=== PATIENT | female | born 1955 | race Caucasian/White ===

== ENCOUNTER 2018-02-14 12:11 | Inpatient (IN) | payer OTHER ==
--- OUTSIDE RECORDS SUMMARY | 2018-02-14 12:14 | XMS REPORT ---
:1955 [facility] Address [address] [place] [address] Dr. Dumont [address] [place] [address] Care Team Providers Name Role Phone ANGELITO ROCK Unavailable Unavailable Problems This patient has no known problems. Allergies, Adverse Reactions, Alerts This patient has no known allergies or adverse reactions. Medications This patient has no known medications. Results Test Description Test Time Test Comments Text Results Atomic Results Result Comments FINE NEEDLE ASPIRATE 2018-02-03 09:41:00 Medical Cytology Report BY EBUS Case: [id number] Authorizing Provider: Natanael Rock MD Collected: 01/11/2018 [id number] Ordering Location: [facility] Received: 01/12/2018 1001 PERIOPERATIVE SERVICES Pathologist: Adrianna Shaw Specimen: Lymph Node, Subcarinal, Station 7 Addendum is issued to report results of PD-L1 Testing from [facility]. The diagnosis remains the same.PD-L1 - No expression, 0% proportion score, Intensity- 0Addendum electronically signed by Adrianna Shaw on 02/03/2018 at 9:41 AMSTATION 7 LYMPH NODE, FNA BY CLINICIAN (DIRECT SMEARS AND CELL BLOCK OF ASPIRATE): - NON SMALL CELL CARCINOMA, SQUAMOUS CELL CARCINOMA Signing Pathologist Direct Phone Line: [phone] signed by Adrianna Shaw on 01/13/2018 at 2:48 PMSmears are cellular showing many groups, sheets, and singly disbursed atypical cells with features of squamous differentiation . Many atypical cells with deep orangeophilic cytoplasm are seen. There is increased nuclear to cytoplasmic ratio with nuclear pleomorhism, mitoses, and nucleoli. Findings are positive for metastatic squamous cell carcinoma.Intradepartmental Consultation: Dr. Arnaldo Richardson has reviewed the case and agrees with the findings.Please also see cytopathology report [id number], 456 and 457. 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 IMPRESSION: Support Lines: None. Lungs and pleura: Cystic lesion in the right upper lobe is unchanged. No focal airspace disease. No significant effusion. No pneumothorax.Heart and mediastinum: Stable contours. Stable positioning of brachiocephalic stent material.Additional findings: None. Signed: JR Choi Robert MDReport Verified Date/Time: 01/14/2018 07:59:41 Reading Location: [address] Reading Room NEEDLE ASPIRATE 2018-01-13 14:50:00 Medical Cytology Report BY EBUS Case: [id number] Authorizing Provider: Natanael Rock MD Collected: 01/11/2018 [id number] Ordering Location: [facility] Received: 01/12/2018 1003 PERIOPERATIVE SERVICES Pathologist: Adrianna Shaw Specimen: Lymph Node, Lower Paratracheal, Right, Station 4R 4R LYMPH NODE, FNA BY CLINICIAN (DIRECT SMEARS AND CELL BLOCK OF ASPIRATE): - NON-SMALL CELL CARCINOMA, SQUAMOUS CELL CARCINOMA Signing Pathologist Direct Phone Line: [phone] signed by Adrianna Shaw on 01/13/2018 at 2:50 PMSmears are cellular showing many groups, sheets, and singly disbursed atypical cells with features of squamous differentiation . Many atypical cells with deep orangeophilic cytoplasm are seen. There is increased nuclear to cytoplasmic ratio with nuclear pleomorhism, mitoses, and nucleoli. Cell block shows rare atypical groups. Findings are positive for metastatic squamous cell carcinoma.Intradepartmental Consultation: Dr. Arnaldo Richardson has reviewed the case and agrees with the findings.Please also see cytopathology report [id number], 456 and 457. 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, received at [id number] LYMPH NODE FNA 4 direct smear slidesPrepared cell block(A2) from sample in 30 ml cytorich red fixativeCollected: [id number]: [id number] (5:54PM, [place])[facility], Department of Pathology, [address] [place] [address], [facility], [facility] of [facility], [address] [place] [address], CYTOLOGY 2018-01-13 14:45:00 Medical Cytology Report Case: [id number] Authorizing Provider: Natanael Rock MD Collected: 01/11/2018 1718 Ordering Location: [facility] Received: 01/12/2018 1006 PERIOPERATIVE SERVICES Pathologist: Adrianna Shaw Specimen: Lung, Right Lower Lobe RIGHT LOWER LOBE LUNG, BRONCHIAL WASHINGS (CYTOSPINS): - RARE MILDLY ATYPICAL SQUAMOUS CELLS PRESENT Signing Pathologist Direct Phone Line: [phone] signed by Adrianna Shaw on 01/13/2018 at 2:45 PMRare mildly atypical squamous cells are seen with orangeophilic cytoplasm. 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 Please correlate with concurrent cytology cases.Please also see cytopathology report [id number], 455 and 456. 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, received at [facility] LOWER LOBE LUNG BRONCHIAL WASHINGPrepared 4 cytospins from 15 ml colorless fluidCollected: [id number]: [id number], Department of Pathology, [address] [place] [address], [facility], [address] [place] [address], CYTOLOGY 2018-01-13 12:23:00 Medical Cytology Report Case: [id number] Authorizing Provider: Natanael Rock MD Collected: 01/11/2018 1712 Ordering Location: [facility] Received: 01/12/2018 1005 PERIOPERATIVE SERVICES Pathologist: Adrianna Shaw Specimen: Lung, Right Lower Lobe RIGHT LOWER LOBE LUNG, BRONCHIAL BRUSHING (CYTOSPINS): - NO MALIGNANT CELLS IDENTIFIED Signing Pathologist Direct Phone Line: [phone] signed by Adrianna Shaw on 01/13/2018 at 12:23 PMPlease also see cytopathology report [id number], [id number] and 457. 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, received at [facility] LOWER LOBE LUNG BRUSHING 2 cytospins prepared from unfixed brush tipCollected: [id number]: [id number]ower [facility] Center, Department of Pathology, [address] [place] [address], [facility]xhk[facility], [facility] of [facility]ology, [address] [place] [address], POCT-GLUCOSE METER 2018-01-11 13:54:00 Test Item Value Reference Range Comments POC-GLUCOSE METER (HIEU) (test 116 mg/dL 70-110 TESTED AT [address] htff=9960) [facility] [address] RAD, CHEST, PA OR AP, 1 [id number] 17:09:00Reason for exam:->pre- opShould this be performed at the bedside?->NoFINAL REPORT Frontal view of the chest. HISTORY: Preoperative. COMPARISON STUDY: None available. FINDINGS: The cardiac silhouette is unremarkable. A 1.9 x 2.0 cm cavitary mass isseen in the right upper lung field. The remaining pulmonary parenchyma is clear. No pleural effusionor pneumothorax is seen. A stent projects over the upper mediastinum. Degenerative changes are seen.IMPRESSION: Cavitary lesion in the right upper lung field for which further assessment with CT scan is recommended to assess for neoplasm. Signed: Matthew Patterson MDReport Verified Date/Time: 01/08/2018 17:09:28 Reading Location: [address] Consult Reading Room COMPREHENSIVE METABOLIC [id number] 16:51:00 Test Item Value Reference Range Comments TOTAL PROTEIN (BEAKER) 7.4 gm/dL 6.0-8.3 (test rvpy=263) ALBUMIN (BEAKER) (test 4.0 g/dL 3.5-5.0 keht=3132) ALKALINE PHOSPHATASE 65 U/L 40-150 (BEAKER) (test wdfu=764) BILIRUBIN TOTAL (BEAKER) 0.6 mg/dL 0.2-1.2 (test rjci=442) SODIUM (BEAKER) (test 133 meq/L 136-145 vkyh=343) POTASSIUM (BEAKER) (test 4.6 meq/L 3.5-5.1 qqwi=596) CHLORIDE (BEAKER) (test 98 meq/L 98-107 rbss=615) CO2 (BEAKER) (test 27 meq/L 22-29 rnbg=269) BLOOD UREA NITROGEN 6 mg/dL 7-21 (BEAKER) (test ycdp=641) CREATININE (BEAKER) (test 0.69 mg/dL 0.57-1.25 itkj=331) GLUCOSE RANDOM (BEAKER) 120 mg/dL 70-105 (test axbf=687) CALCIUM (BEAKER) (test 9.5 mg/dL 8.4-10.2 xmup=044) AST (SGOT) (BEAKER) (test 18 U/L 5-34 rosw=569) ALT (SGPT) (BEAKER) (test 21 U/L 6-55 alnv=739) EGFR (BEAKER) (test 86 mL/min/1.73 sq m ESTIMATED GFR IS NOT mark=0060) ACCURATE CREATININE CLEARANCE IN PREDICTING GLOMERULAR FILTRATION RATE. ESTIMATED GFR IS NOT APPLICABLE FOR DIALYSIS PATIENTS. PT/[id number] 16:49:00 Test Item Value Reference Range Comments PROTIME (BEAKER) (test hsar=678) 15.1 seconds 11.7-14.7 INR (BEAKER) (test esvm=225) 1.2 <=5.9 PARTIAL THROMBOPLASTIN TIME (BEAKER) (test 27.1 seconds 22.5-36.0 xpsd=296) RECOMMENDED COUMADIN/WARFARIN INR THERAPY RANGESSTANDARD DOSE: 2.0 - 3.0 Includes: PROPHYLAXIS forvenous thrombosis, systemic embolization; TREATMENT for venous thrombosis and/or pulmonary embolus.HIGH RISK: Target INR is 2.5-3.5 for patients with mechanical heart valves.CBC W/PLT COUNT & AUTO [id number] 16:35:00 Test Item Value Reference Range Comments WHITE BLOOD CELL COUNT (BEAKER) (test freq=347) 8.4 K/ L 3.5-10.5 RED BLOOD CELL COUNT (BEAKER) (test wndc=490) 4.19 M/ L 3.93-5.22 HEMOGLOBIN (BEAKER) (test ydqc=416) 13.0 GM/DL 11.2-15.7 HEMATOCRIT (BEAKER) (test dclb=256) 38.7 % 34.1-44.9 MEAN CORPUSCULAR VOLUME (BEAKER) (test brhl=871) 92.4 fL 79.4-94.8 MEAN CORPUSCULAR HEMOGLOBIN (BEAKER) (test 31.0 pg 25.6-32.2 awbv=992) MEAN CORPUSCULAR HEMOGLOBIN CONC (BEAKER) (test 33.6 GM/DL 32.2-35.5 acjb=299) RED CELL DISTRIBUTION WIDTH (BEAKER) (test 13.2 % 11.7-14.4 tabo=281) PLATELET COUNT (BEAKER) (test wxok=967) 246 K/CU MM 150-450 MEAN PLATELET VOLUME (BEAKER) (test kpmt=388) 9.3 fL 9.4-12.3 NUCLEATED RED BLOOD CELLS (BEAKER) (test 0 /100 WBC 0-0 tobw=474) NEUTROPHILS RELATIVE PERCENT (BEAKER) (test 64 % joey=573) LYMPHOCYTES RELATIVE PERCENT (BEAKER) (test 28 % xusg=073) MONOCYTES RELATIVE PERCENT (BEAKER) (test 6 % yowa=633) EOSINOPHILS RELATIVE PERCENT (BEAKER) (test 1 % qigm=242) BASOPHILS RELATIVE PERCENT (BEAKER) (test 1 % dwtl=646) NEUTROPHILS ABSOLUTE COUNT (BEAKER) (test 5.31 K/ L 1.56-6.13 xvor=176) LYMPHOCYTES ABSOLUTE COUNT (BEAKER) (test 2.34 K/ L 1.18-3.74 xrjl=937) MONOCYTES ABSOLUTE COUNT (BEAKER) (test 0.53 K/ L 0.24-0.36 dwet=721) EOSINOPHILS ABSOLUTE COUNT (BEAKER) (test 0.11 K/ L 0.04-0.36 laax=805) BASOPHILS ABSOLUTE COUNT (BEAKER) (test 0.04 K/ L 0.01-0.08 dmrw=498) IMMATURE GRANULOCYTES-RELATIVE PERCENT (BEAKER) 0 % 0-1 (test yzkx=2711)
[2018-02-14 13:14] LABS: Absolute Lymphocytes (CBC) 1.3 K/uL (0.7-4.9); Absolute Monocytes 0.5 K/uL (0.1-1.3); Absolute Neutrophil 7.4 K/uL (1.8-8.0); Basophils % 0.7 % (0-1.3); Eosinophils % 0.9 % (0-4.4); Hematocrit 36.9 % (36.0-45.0); Lymphocytes % 13.8 % (15.3-44.8); MCH 30.5 pg (27.0-35.0); MCV 90.9 fL (80-100); MPV 7.7 fL (7.6-11.3); Monocytes % 5.1 % (3.3-12.3); RBC Red Blood Cell Count 4.06 M/uL (3.86-4.86)
[2018-02-14 13:21] LABS: Protime INR 1.68
--- NOTE | 2018-02-14 13:22 | RAD REPORT ---
EXAM DESCRIPTION: RAD - Chest Single View - 02/14/2018 1:13 pm CLINICAL HISTORY: Chest pain. COMPARISON: 10/01/2017, 09/13/2015 FINDINGS: Portable technique limits examination quality. Cavitary lung lesion is again noted in the right upper lobe, appearing somewhat enlarged compared to the prior study. The heart is mildly prominent. Stent is present in superior mediastinum. No displace d fractures.
[2018-02-14] MEDS ORDERED: MORPHINE 4 MG/ML SYR ONE ×2 (13:24→16:32)
[2018-02-14 13:36] LABS: CKMB Creatine Kinase MB 0.9 ng/ml (0.3-4.0); Magnesium 1.1 mg/dL (1.8-2.5)
--- NOTE | 2018-02-14 13:46 | ER ---
Nurse's Notes [facility] Name: Cherise Ordaz Age: 62 yrs Sex: Female : 1955 Arrival Date: 02/14/2018 Time: 12:13 Bed 15 Private MD: Nisreen Gutiérrez Diagnosis: Chest pain, unspecified;Hypomagnesemia Presentation: 02/14 12:24 Presenting complaint: Patient states: i had chest pain that started an hour ago, heavy, hj pressure pain, moves to the back, denies nausea; reports SOB; denies fever; reports night sweats; states, i was just dx with lung cancer and im concerned about what tx to take and im stressed out about it;. Transition of care: patient was not received from another setting of care. Onset of symptoms was February 14, 2018. Care prior to arrival: None. 12:24 Method Of Arrival: Ambulatory 12:24 Acuity: JOSE 3 hj Triage Assessment: 12:29 General: Appears in no apparent distress. uncomfortable, Behavior is calm, cooperative, hj appropriate for age. Pain: Complains of pain in chest Pain radiates to back. Cardiovascular: Capillary refill < 3 seconds Patient's skin is warm and dry. Historical: - Allergies: 12:29 No Known Allergies; hj - Home Meds: 12:29 metformin 500 mg Oral Tb24 1 tab 2 times per day [Active]; omeprazole 20 mg Oral cpDR 1 hj cap once daily [Active]; metoprolol tartrate 25 mg Oral tab 1 tab once daily [Active]; simvastatin 40 mg Oral tab 1 tab once daily [Active]; Warfarin Oral [Active]; sertraline 100 mg oral tab 1 tab once daily [Active]; trazodone 100 mg Oral tab 1 tab as needed [Active]; alprazolam 0.5 mg Oral Tb24 1 tab once daily [Active]; bevespi [Active]; Albuterol Inhl [Active]; - PMHx: 12:29 Diabetes - NIDDM; Hyperlipidemia; hj - PSHx: 12:29 partial colectomy; back sx; hj - Immunization history:: Adult Immunizations unknown. - Social history:: Smoking status: Patient/guardian denies using tobacco. Screenin:00 Abuse screen: Denies threats or abuse. Denies injuries from another. Nutritional jl7 screening: No deficits noted. Tuberculosis screening: No symptoms or risk factors identified. Fall Risk IV access (20 points). Total Flores Fall Scale indicates No Risk (0-24 pts). Assessment: 12:29 Pain: Pain began 1 hour ago. hj 13:00 General: Appears distressed, uncomfortable, Behavior is calm, cooperative, appropriate jl7 for age. Pain: Complains of pain in chest Pain radiates to back Pain currently is 7 out of 10 on a pain scale. Quality of pain is described as squeezing, Pain began 2 hours ago. Is intermittent. Neuro: Level of Consciousness is awake, alert, obeys commands, Oriented to person, place, time, situation, Moves all extremities. Cardiovascular: Heart tones S1 S2 present Patient's skin is warm and dry. Respiratory: Airway is patent Respiratory effort is even, labored, Respiratory pattern is symmetrical, tachypnea Breath sounds with wheezes bilaterally. Derm: Skin is pink, warm \T\ dry. Musculoskeletal: No signs and/or symptoms reported regarding the musculoskeletal system. 13:05 Reassessment: NO BPs or IVs to left arm. jl7 14:00 Reassessment: No changes from previously documented assessment. Patient and/or family jl7 updated on plan of care and expected duration. Pain level reassessed. Patient is alert, oriented x 3, equal unlabored respirations, skin warm/dry/pink. 15:00 Reassessment: Patient and/or family updated on plan of care and expected duration. Pain jl7 level reassessed. Patient is alert, oriented x 3, equal unlabored respirations, skin warm/dry/pink. Right AC IV infiltrated, IV removed. Provider notified, ordered new IV in right hand. 16:15 Reassessment: Patient and/or family updated on plan of care and expected duration. Pain jl7 level reassessed. Patient is alert, oriented x 3, equal unlabored respirations, skin warm/dry/pink. Pt c/o of pain and nausea. Provider notified, see MAR for orders. Vital Signs: 12:23 BP 151 / 80; Pulse 98; Resp 18; Temp 98.7(TE); Pulse Ox 96% on R/A; Weight 83.01 kg; hj Height 5 ft. 5 in. (165.10 cm); Pain 8/10; 14:00 BP 125 / 75; Pulse 61; Resp 26 S; Pulse Ox 100% on R/A; jl7 15:00 BP 146 / 76; Pulse 100; Resp 24; Pulse Ox 100% on 2 lpm NC; jl7 12:23 Body Mass Index 30.45 (83.01 kg, 165.10 cm) ED Course: 12:13 Patient arrived in ED. rg4 12:15 Nisreen Gutiérrez MD is Private Physician. rg4 12:26 Triage completed. hj 12:29 Arm band placed on right wrist. hj 12:29 Patient maintains SpO2 saturation greater than 95% on room air. hj 12:33 Annelise Leonardo FNP-C is PHCP. snw 12:33 Mo Reyes MD is Attending Physician. snw 12:47 Placed in gown. Bed in low position. Call light in reach. Warm blanket given. Cardiac mh5 monitor on. Pulse ox on. NIBP on. 12:47 EKG done, by ED staff, reviewed by Annelise POMPA. 5 13:03 Juanita Barillas RN is Primary Nurse. jl7 13:16 X-ray completed. Portable x-ray completed in exam room. Patient tolerated procedure la2 well. 13:24 Initial lab(s) drawn, by me, sent to lab. Inserted saline lock: 22 gauge in right mh5 antecubital area, using aseptic technique. Blood collected. 13:45 Der Ken DO is Hospitalizing Provider. snw 14:23 CT completed. Patient tolerated procedure well. Patient moved back from CT. cw1 15:10 Inserted saline lock: 24 gauge in right hand, using aseptic technique. jl7 16:41 No provider procedures requiring assistance completed. Patient admitted, IV remains in jl7 place. Administered Medications: 13:05 Drug: morphine 4 mg Route: IVP; Site: right antecubital; jl7 13:30 Follow up: Response: No adverse reaction; Pain is decreased jl7 15:26 Drug: Magnesium Sulfate 2 grams Route: IVPB; Infused Over: 2 hrs; Site: right hand; jl7 17:00 Follow up: IV Status: Completed infusion jl7 15:26 Drug: Lovenox 80 mg Route: Sub-Q; Site: right lower abdomen; jl7 15:46 Follow up: Response: No adverse reaction jl7 16:20 Drug: morphine 4 mg Route: IVP; Site: right hand; jl7 16:38 Follow up: Response: No adverse reaction; Pain is decreased jl7 16:25 Drug: Zofran 4 mg Route: IVP; Site: right hand; jl7 16:40 Follow up: Response: No adverse reaction; Nausea is decreased jl7 Outcome: 13:46 Decision to Hospitalize by Provider. snw 16:41 Admitted to Tele accompanied by tech, via wheelchair, room 423, with oxygen, Report jl7 called to Nurse Chelo 16:41 Condition: stable 16:41 Discharge instructions given to patient, family, Instructed on the need for admit, Demonstrated understanding of instructions. 17:00 Patient left the ED. jl7 Signatures: Annelise Leonardo, VERONICAC MUSIC DIRECTOR-Maira Couch cw1 Mark Lopez, RN RN Isis Kitchen4 Sasha Bowers Jahala, RN RN jl7 Sasha Combs2 Corrections: (The following items were deleted from the chart) 12:30 12:24 Presenting complaint: Patient states: i had chest pain that started an hour ago, hj heavy, pressure pain, moves to the back, denies nausea; reports SOB; denies fever; reports night sweats; hj
--- NOTE | 2018-02-14 13:46 | EDPHYS ---
Physician Documentation [facility] Name: Cherise Ordaz Age: 62 yrs Sex: Female : 1955 Arrival Date: 02/14/2018 Time: 12:13 Bed 15 Private MD: Nisreen Gutiérrez ED Physician Mo Reyes HPI: 02/14 13:09 This 62 yrs old Female presents to ER via Ambulatory with complaints of Chest snw Pain. 13:09 The patient or guardian reports chest pain that is located primarily in the anterior snw chest wall, bilaterally. Onset: suddenly, 1 hour(s) ago, and became persistent. The pain radiates to back. Associated signs and symptoms: Pertinent positives: cough, shortness of breath. The chest pain is described as a pressure, squeezing. Duration: The patient or guardian reports a single episode. Modifying factors: The symptoms are alleviated by nothing. Severity of pain: At its worst the pain was moderate severe. The patient has not experienced similar symptoms in the past. The patient has been recently seen by a physician: with different complaint(s), Pt with recent (6 days ago) biopsy from right axilla per Dr. Garcia. Pt to undergo tx for squamous cell carcinoma per Dr. Swartz, sees Dr. Baeza and PCP is Dr. Jamison. Historical: - Allergies: 12:29 No Known Allergies; hj - Home Meds: 12:29 metformin 500 mg Oral Tb24 1 tab 2 times per day [Active]; omeprazole 20 mg Oral cpDR 1 hj cap once daily [Active]; metoprolol tartrate 25 mg Oral tab 1 tab once daily [Active]; simvastatin 40 mg Oral tab 1 tab once daily [Active]; Warfarin Oral [Active]; sertraline 100 mg oral tab 1 tab once daily [Active]; trazodone 100 mg Oral tab 1 tab as needed [Active]; alprazolam 0.5 mg Oral Tb24 1 tab once daily [Active]; bevespi [Active]; Albuterol Inhl [Active]; - PMHx: 12:29 Diabetes - NIDDM; Hyperlipidemia; hj - PSHx: 12:29 partial colectomy; back sx; hj - Immunization history:: Adult Immunizations unknown. - Social history:: Smoking status: Patient/guardian denies using tobacco. ROS: 13:09 Constitutional: Negative for fever, chills, and weight loss, Eyes: Negative for injury, snw pain, redness, and discharge, ENT: Negative for injury, pain, and discharge, Neck: Negative for injury, pain, and swelling. 13:09 Abdomen/GI: Negative for abdominal pain, nausea, vomiting, diarrhea, and constipation, Back: Negative for injury and pain, : Negative for injury, bleeding, discharge, and swelling, MS/Extremity: Negative for injury and deformity, Skin: Negative for injury, rash, and discoloration, Neuro: Negative for headache, weakness, numbness, tingling, and seizure. 13:09 Cardiovascular: Positive for chest pain. 13:09 Respiratory: Positive for cough, shortness of breath. Exam: 13:07 Constitutional: This is a well developed, well nourished patient who is awake, alert, snw and in no acute distress. Head/Face: Normocephalic, atraumatic. Eyes: Pupils equal round and reactive to light, extra-ocular motions intact. Lids and lashes normal. Conjunctiva and sclera are non-icteric and not injected. Cornea within normal limits. Periorbital areas with no swelling, redness, or edema. ENT: Nares patent. No nasal discharge, no septal abnormalities noted. Tympanic membranes are normal and external auditory canals are clear. Oropharynx with no redness, swelling, or masses, exudates, or evidence of obstruction, uvula midline. Mucous membranes moist. Neck: Trachea midline, no thyromegaly or masses palpated, and no cervical lymphadenopathy. Supple, full range of motion without nuchal rigidity, or vertebral point tenderness. No Meningismus. Mild edema to right lateral neck/axilla (Biopsy of lymph node 6 days ago) Chest/axilla: Normal chest wall appearance and motion. Nontender with no deformity. No lesions are appreciated. 13:07 Abdomen/GI: Soft, non-tender, with normal bowel sounds. No distension or tympany. No guarding or rebound. No evidence of tenderness throughout. Back: No spinal tenderness. No costovertebral tenderness. Full range of motion. Skin: Warm, dry with normal turgor. Normal color with no rashes, no lesions, and no evidence of cellulitis. MS/ Extremity: Pulses equal, no cyanosis. Neurovascular intact. Full, normal range of motion. Neuro: Awake and alert, GCS 15, oriented to person, place, time, and situation. Cranial nerves II-XII grossly intact. Motor strength 5/5 in all extremities. Sensory grossly intact. Cerebellar exam normal. Normal gait. 13:07 Cardiovascular: Rate: tachycardic, Rhythm: regular, Edema: is not appreciated. 13:07 Respiratory: the patient does not display signs of respiratory distress, Respirations: shallow respirations, tachypnea, Breath sounds: are clear throughout, harsh cough. Vital Signs: 12:23 BP 151 / 80; Pulse 98; Resp 18; Temp 98.7(TE); Pulse Ox 96% on R/A; Weight 83.01 kg; hj Height 5 ft. 5 in. (165.10 cm); Pain 8/10; 14:00 BP 125 / 75; Pulse 61; Resp 26 S; Pulse Ox 100% on R/A; jl7 15:00 BP 146 / 76; Pulse 100; Resp 24; Pulse Ox 100% on 2 lpm NC; jl7 12:23 Body Mass Index 30.45 (83.01 kg, 165.10 cm) hj MDM: 12:33 Patient medically screened. snw 13:46 The patient's pulmonary embolism risk score was calculated as follows: patient has snw experienced immobilization or surgery in the last four weeks (1.5 Pts) malignancy Total Score: 3-6 points. This patient was found to be at moderate risk for a pulmonary embolism by using the [employer]'s assessment criteria. Data reviewed: vital signs, nurses notes. Data interpreted: Pulse oximetry: on room air is 96 %. Interpretation: acceptable. 13:46 Physician consultation: Dre Ken DO was called at 13:48, was contacted at 13:48, w regarding admission, to the telemetry unit. in the emergency department to see patient at 13:48. 02/14 12:34 Order name: Basic Metabolic Panel [facility] 02/14 12:34 Order name: BNP [facility] 02/14 12:34 Order name: CBC with Diff [facility] 02/14 12:34 Order name: Ckmb [facility] 02/14 12:34 Order name: CPK [facility] 02/14 12:34 Order name: Magnesium [facility] 02/14 12:34 Order name: PT-INR [facility] 02/14 12:34 Order name: Ptt, Activated snw 02/14 12:34 Order name: Troponin (emerg Dept Use Only) [facility] 02/14 13:17 Order name: CBC with Automated Diff; Complete Time: 13:40 EDMS 02/14 13:21 Order name: Protime (+INR); Complete Time: 13:40 EDMS 02/14 13:21 Order name: PTT, Activated Partial Thromb; Complete Time: 13:40 EDMS 02/14 13:26 Order name: Basic Metabolic Panel; Complete Time: 13:40 EDMS 02/14 13:32 Order name: Creatine Phosphokinase; Complete Time: 13:40 EDMS 02/14 12:34 Order name: XRAY Chest (1 view) [facility] 02/14 13:23 Order name: RAD; Complete Time: 13:40 EDMS 02/14 13:33 Order name: Troponin (Emerg Dept Use Only); Complete Time: 13:40 EDMS 02/14 13:36 Order name: CKMB Creatine Kinase MB; Complete Time: 13:40 EDMS 02/14 13:37 Order name: Magnesium; Complete Time: 13:40 EDMS 02/14 13:37 Order name: BNP B-Type Natriuretic Peptide; Complete Time: 13:40 EDMS 02/14 13:44 Order name: CT Chest For PE Angio [facility] 02/14 14:36 Order name: CT; Complete Time: 14:43 EDMS 02/14 14:47 Order name: US Extremity Venous Uni Ltd [facility] 02/14 14:56 Order name: Urine Dipstick--Ancillary (enter results) ag 02/14 16:03 Order name: Urine Dipstick-Ancillary; Complete Time: 16:20 EDMS 02/14 12:34 Order name: EKG; Complete Time: 12:36 snw 02/14 12:34 Order name: Cardiac monitoring; Complete Time: 14:49 [facility] 02/14 12:34 Order name: EKG - Nurse/Tech; Complete Time: 14:49 w 02/14 12:34 Order name: IV Saline Lock; Complete Time: 14:49 w 02/14 12:34 Order name: Labs collected and sent; Complete Time: 14:49 w 02/14 12:34 Order name: O2 Per Protocol; Complete Time: 14:49 snw 02/14 12:34 Order name: O2 Sat Monitoring; Complete Time: 14:49 snw 02/14 12:34 Order name: Urine Dipstick-Ancillary (obtain specimen); Complete Time: 15:46 snw Administered Medications: 13:05 Drug: morphine 4 mg Route: IVP; Site: right antecubital; jl7 13:30 Follow up: Response: No adverse reaction; Pain is decreased jl7 15:26 Drug: Magnesium Sulfate 2 grams Route: IVPB; Infused Over: 2 hrs; Site: right hand; jl7 17:00 Follow up: IV Status: Completed infusion jl7 15:26 Drug: Lovenox 80 mg Route: Sub-Q; Site: right lower abdomen; jl7 15:46 Follow up: Response: No adverse reaction jl7 16:20 Drug: morphine 4 mg Route: IVP; Site: right hand; jl7 16:38 Follow up: Response: No adverse reaction; Pain is decreased jl7 16:25 Drug: Zofran 4 mg Route: IVP; Site: right hand; jl7 16:40 Follow up: Response: No adverse reaction; Nausea is decreased jl7 Disposition: 02/15 10:48 Co-signature as Attending Physician, Mo Reyes MD I agree with the assessment and nirmal plan of care. Disposition: 02/14/18 13:46 Hospitalization ordered by Dre Ken for Observation. Preliminary diagnosis are Chest pain, unspecified, Hypomagnesemia. - Bed requested for Telemetry/MedSurg (observation). - Status is Observation. jl7 - Condition is Stable. - Problem is an acute exacerbation. - Symptoms are unchanged. UTI on Admission? No Signatures: Dispatcher [employer] Liseth Arias, RN Mo Torrez MD MD cha Therrien, Shelly, BUILDING EQUIPMENT OPERATOR-C BUILDING EQUIPMENT OPERATOR-Csnw Mark Lopez RN RN hj Leal, Jahala, RN RN jl7 Bryson, James jtb
--- NOTE | 2018-02-14 14:36 | RAD REPORT ---
EXAM DESCRIPTION: CT - Chest For Pe Angio - 02/14/2018 2:23 pm CLINICAL HISTORY: Chest pain. History of lung carcinoma. COMPARISON: 11/12/2017, 10/16/2017 TECHNIQUE: CT angiogram of the pulmonary arteries was performed with MIP. All CT scans are performed using dose optimization technique as appropriate and may include automated exposure control or mA/KV adjustment according to patient size. FINDINGS: No evidence of pulmonary thromboembolism. No acute aortic finding demonstrated. Progressive intrathoracic malignancy is noted with cavitary right upper lobe mass enlarged since prio r CT, currently measuring 3.4 x 2.8 cm, previously 2.2 by 2.0 cm. Additional pulmonary nodules bilate rally have all increased in size as well. For example, right middle lobe nodule is present measuring 7 x 8 mm (image 35/87), left upper lobe nodules present measuring 9 x 7 mm (image 16/87). Lingular no dule is present measuring 10 x 7 mm (image 45/87). Several additional enlarged nodules are present al l compatible with metastatic deposits. Ill-defined soft tissue in the medial infrahilar station has increased in size currently measuring 2. 8 x 2.9 cm, previously 1.7 x 1.9 cm. Matted lymphadenopathy in the mediastinum and right hilum is pro gressive - in the pretracheal space previously measuring 1.7 cm, currently measuring 2.3 x 3.9 cm, in the prevascular region measuring 1.4 x 1.3 cm, in the sub- carinal station measuring 2.8 x 4.5 cm, p reviously 1.4 x 2.9 cm and in the right hilar station measuring 11 mm. A small pericardial effusion is noted. No lytic or blastic bone lesion. IMPRESSION: No evidence of pulmonary thromboembolism. Significant progression intrathoracic neoplastic process since comparative study.
[2018-02-14] MEDS ORDERED: ENOXAPARIN 80 MG/0.8 ML SQ ONE (15:13)
[2018-02-14] MEDS ORDERED: Magnesium Sulfate 2gm IVPB 2 G/50 ML BAG IV ONE (15:13)
--- NOTE | 2018-02-14 15:50 | P.HP ---
Certification for Inpatient Patient admitted to: Observation With expected LOS: <2 Midnights Patient will require the following post-hospital care: None Practitioner: I am a practitioner with admitting privileges, knowledge of patient current condition, hospital course, and medical plan of care. Services: Services provided to patient in accordance with Admission requirements found in Title 42 Section 412.3 of the Code of Federal Regulations Patient History Date of Service: 02/14/18 Primary Care Provider: Dr. Gutiérrez; Pulmonary-Dr. Baeza; Oncology-Dr. Swartz Reason for admission: Chest pain History of Present Illness: 62-year-old female presented emergency room with chest pain. The patient reports that she had chest pain about an hr and a half ago. It was to the center of her chest. It felt like a vice like sensation. She denied any fever. Some sweats noted. She reports nausea but no vomiting. Over the last week she has had a right axillary biopsy to evaluate underlying cancer. She was recently diagnosed with squamous cell lung cancer. She has a history of goblet cell cancer. The patient reports that she had been off of her Coumadin for over 5 days to have the biopsy done on Thursday. She restarted her Coumadin on Thursday. In the ER patient was evaluated. Vital signs stable. Hemoglobin 12, white count 9.3, INR 1.6. Sodium 136, potassium 4.0, magnesium low at 1.1, GFR 89. Glucose 243. BNP slightly elevated. Troponin unremarkable. Chest x-ray showed a cavitary lesion to the right upper lobe. CT of the chest showed no pulmonary embolism. Due to the nature of her symptoms the patient was admitted for further evaluation and treatment. I was asked to admit the patient. When I saw the patient the ER, she appeared comfortable but still reported some mild pain. Patient with history of squamous cell lung cancer, COPD, diabetes, hypertension, hyperlipidemia. She has a history of blood clots in the past and takes chronic Coumadin. She still smokes tobacco. Allergies No Known Allergies Allergy (Verified 02/05/18 13:05) Home medications list reviewed: Yes Home Medications: Albuterol Sulfate [Proair Hfa] 8.5 gm IH DAILYPRN PRN 11/19/17 Alprazolam [Xanax] 0.5 mg PO TID PRN 11/19/17 Metformin HCl [Glucophage] 500 mg PO BIDWM 11/19/17 Metoprolol Succinate [Toprol Xl] 25 mg PO DAILY 11/19/17 Multivitamin [Multivitamins] 1 each PO DAILY 11/19/17 Omeprazole 20 mg PO DAILY 11/19/17 Sertraline HCl 100 mg PO DAILY 11/19/17 Simvastatin 40 mg PO DAILY 11/19/17 Trazodone HCl 100 mg PO BEDTIME 11/19/17 Warfarin Sodium [Coumadin] 1 mg PO M,W,F 11/19/17 Warfarin Sodium [Coumadin] 5 mg PO DAILY 5 PM 11/19/17 Tramadol HCl [Ultram] 50 mg PO PRN PRN 02/05/18 - Past Medical/Surgical History Diabetic: Yes -: Diabetes mellitus type 2 -: Hypertension -: COPD -: Hyperlipidemia -: History of blood clots, chronic anti coagulation -: Tobacco abuse -: Squamous cell lung cancer -: Goblet cell cancer -: Depression with anxiety -: Multiple biopsies -: Back surgery Psychosocial/ Personal History: The patient lives with her son. She has 3 children. She is - Family History Father -: Diabetes Mother -: Heart disease (Atrial fibrillation) - Social History Smoking Status: Heavy Tobacco smoker (>10 cigarettes/day) Counseled patient to stop smoking for: less than 10 minutes Smoking therapy provided: Yes Patient receptive to therapy: Yes Alcohol use: Yes CD- Drugs: No Caffeine use: Yes Place of Residence: Home Review of Systems General: Sweats, Weakness, As per HPI Eyes: Unremarkable ENT: Unremarkable Respiratory: Cough, Shortness of Breath, SOB with Excertion, Wheezing, As per HPI Cardiovascular: Chest Pain, As per HPI Gastrointestinal: Nausea, As per HPI Genitourinary: Unremarkable Musculoskeletal: Unremarkable Integumentary: As per HPI Neurological: As per HPI Lymphatics: Enlarged lymph nodes Physical Examination - Physical Exam General: Alert, In no apparent distress, Oriented x3, Cooperative HEENT: Atraumatic, Normocephalic, PERRLA, Mucous membr. moist/pink Neck: Supple, Other (Mild distention to the Super clavicular area) Respiratory: Clear to auscultation bilaterally Cardiovascular: Normal pulses, Regular rate/rhythm Gastrointestinal: Normal bowel sounds, Soft and benign, Non-distended, No tenderness, No masses, No rebound, No guarding Musculoskeletal: No contractures, No erythema, No tenderness, No warmth Integumentary: No erythema, No warmth, No cyanosis, Other (Healing wound to the right axillary area.) Neurological: Normal speech, Normal strength at 5/5 x4 extr, Normal tone, Normal affect Lymphatics: No axilla or inguinal lymphadenopathy - Studies Laboratory Data (last 24 hrs) 02/14/18 13:00: PT 19.9 H, INR 1.68, APTT 29.6 02/14/18 13:00: WBC 9.3, Hgb 12.4, Hct 36.9, Plt Count 364 02/14/18 13:00: B-Natriuretic Peptide 188 H 02/14/18 13:00: Sodium 136, Potassium 4.0, BUN 6, Creatinine 0.67, Glucose 243 H , Magnesium 1.1 L* Assessment and Plan - Problems (Diagnosis) (1) Chest pain Current Visit: Yes Status: Acute Plan: Will monitor cardiac enzymes. Will check echocardiogram. Will continue with her medication. Will have pulmonology assess patient in the morning. Anticipate possible discharge tomorrow if okay with pulmonology. Patient may have mild COPD exacerbation. Will start low-dose steroid. Qualifiers: Chest pain type: unspecified Qualified Code(s): R07.9 - Chest pain, unspecified (2) COPD (chronic obstructive pulmonary disease) Current Visit: Yes Status: Acute Plan: Mild COPD exacerbation noted. Will start low-dose steroid. Will continue with COPD treatment. Will consult pulmonology to further address. Patient with underlying lung cancer. Biopsy results pending. Patient to see Oncology here soon. She is to have a bone scan as well soon. Qualifiers: COPD type: COPD with acute exacerbation Qualified Code(s): J44.1 - Chronic obstructive pulmonary disease with (acute) exacerbation (3) Hypomagnesemia Current Visit: Yes Status: Acute Plan: Will monitor and adjust appropriately. Replacement protocol in place. (4) Squamous cell lung cancer Current Visit: Yes Status: Chronic Plan: Patient with squamous cell lung cancer. Will discuss with pulmonology. Patient is seen by oncology. Recent biopsy of the right axilla has been done. Qualifiers: Laterality: right Qualified Code(s): C34.91 - Malignant neoplasm of unspecified part of right bronchus or lung (5) Diabetes mellitus Current Visit: Yes Status: Chronic Plan: Will continue with sliding scale. Will monitor closely. Qualifiers: Diabetes mellitus type: type 2 Diabetes mellitus intermediate teacher insulin use: without halfway use Diabetes mellitus complication status: with other specified complication Qualified Code(s): E11.69 - Type 2 diabetes mellitus with other specified complication (6) Hypertension Current Visit: Yes Status: Chronic Plan: Will continue with medication. Qualifiers: Hypertension type: essential hypertension Qualified Code(s): I10 - Essential (primary) hypertension (7) Hyperlipidemia Current Visit: Yes Status: Chronic Plan: Will continue with medication. Qualifiers: Hyperlipidemia type: unspecified Qualified Code(s): E78.5 - Hyperlipidemia , unspecified (8) Depression with anxiety Current Visit: Yes Status: Chronic Plan: Will continue with medication. (9) Chronic anticoagulation Current Visit: Yes Status: Chronic Plan: Patient is subtherapeutic. Will continue with Coumadin. Will also cover with Lovenox at 1 milligram/kilograms subcu twice daily. Will discontinue Lovenox once INR is above 2.0 (10) History of blood clots Current Visit: Yes Status: Chronic Plan: Patient with history of blood clots. Will continue with above plan of care. Discharge Plan: Home Plan to discharge in: 24 Hours - Advance Directives Does patient have a Living Will: No Does patient have a Durable POA for Healthcare: No - Code Status/Comfort Care Code Status Assessed: Yes (Patient still undecided. She is to discuss with family) Time Spent Managing Pts Care (In Minutes): 55
[2018-02-14 16:02] LABS: Urine Blood NEGATIVE (NEG); Urine Glucose NEGATIVE (NEG); Urine Protein 3+ (NEG); Urine pH 5.5 (5.0-7.0)
[2018-02-14] MEDS ORDERED: ONDANSETRON 4 MG/2 ML VIAL ONE (16:38)
[2018-02-14] MEDS ORDERED: ALBUTEROL 2.5 MG/3 ML NEB SOL NEB PRN (17:14)
[2018-02-14] MEDS ORDERED: ONDANSETRON 4 MG/2 ML VIAL IV PRN (17:14)
[2018-02-14] MEDS ORDERED: ACETAMINOPHEN 500 MG TAB PO PRN (17:14)
[2018-02-14] MEDS ORDERED: IPRATROPIUM BROM 0.5MG/2.5ML NEB PRN (17:14)
[2018-02-14] MEDS: INSULIN -REGULAR HUMAN 50 UNIT/0.5 ML ML SQ SCH ×2 (17:14→21:00)
[2018-02-14] MEDS: WARFARIN SODIUM 4 MG TAB PO SCH (17:27)
[2018-02-14] MEDS: BENZONATATE 100 MG CAP PO PRN (18:10)
[2018-02-14] MEDS: HYDROCODONE/APAP 7.5/325 MG TAB PO PRN (18:10)
[2018-02-14 18:57] LABS: CKMB Creatine Kinase MB 0.7 ng/ml (0.3-4.0)
[2018-02-14] MEDS ORDERED: INFLUENZA VACCINE (for 5y+) 0.5 ML DOSE IMVAC ONE (19:00)
--- NOTE | 2018-02-14 19:24 | RAD REPORT ---
EXAM DESCRIPTION: VAS - Extremity Venous Uni Ltd - 02/14/2018 7:11 pm CLINICAL HISTORY: Arm swelling COMPARISON: None. FINDINGS: Right upper extremity venous system was interrogated with Doppler technique. Normal flow, compressibility and augmentation was noted. There is no DVT present. IMPRESSION: No evidence of right upper extremity deep venous thrombosis.
[2018-02-14] MEDS: ARFORMOTEROL TARTRATE 15 MCG/2 ML VIAL.NEB NEB SCH (20:13)
[2018-02-14] MEDS ORDERED: predniSONE 10 MG TAB PO SCH (21:00)
[2018-02-14] MEDS: ATORVASTATIN 20 MG TAB PO SCH (21:31)
[2018-02-14] MEDS: ALPRAZOLAM 0.25 MG TABLET PO PRN (21:31)
[2018-02-14] MEDS: SERTRALINE HCL 100 MG TAB PO SCH (21:31)
[2018-02-14] MEDS: TRAMADOL HCL 50 MG TAB PO PRN (21:31)
[2018-02-15 01:44] LABS: CKMB Creatine Kinase MB 0.7 ng/ml (0.3-4.0)
[2018-02-15] MEDS ORDERED: MAGNESIUM SULFATE 1 gm IVPB 1 GM/100 ML BAG IV ONE (03:00)
[2018-02-15] MEDS: HYDROCODONE/APAP 7.5/325 MG TAB PO PRN ×2 (03:47→12:45)
[2018-02-15] MEDS ORDERED: NA CHLORIDE 0.9% 100 ML ONE (03:50)
[2018-02-15 05:07] LABS: Absolute Lymphocytes (CBC) 1.5 K/uL (0.7-4.9); Absolute Monocytes 0.7 K/uL (0.1-1.3); Absolute Neutrophil 12.3 K/uL (1.8-8.0); Basophils % 0.5 % (0-1.3); MCH 30.6 pg (27.0-35.0); MCV 90.8 fL (80-100); MPV 8.2 fL (7.6-11.3); Monocytes % 4.9 % (3.3-12.3); RBC Red Blood Cell Count 3.75 M/uL (3.86-4.86)
[2018-02-15 05:09] LABS: Protime INR 2.07
[2018-02-15 05:25] LABS: Potassium 4.9 mEq/L (3.6-5.0)
[2018-02-15 05:34] LABS: Magnesium 2.1 mg/dL (1.8-2.5)
[2018-02-15] MEDS ORDERED: ENOXAPARIN 80 MG/0.8 ML SQ SCH (06:00)
[2018-02-15] MEDS: METOPROLOL TAR 25 MG TAB PO SCH (06:27)
[2018-02-15] MEDS: PANTOPRAZOLE 40MG TABLET PO SCH (06:27)
[2018-02-15] MEDS: INSULIN -REGULAR HUMAN 50 UNIT/0.5 ML ML SQ SCH ×4 (07:30→21:00)
[2018-02-15] MEDS ORDERED: NA CHLORIDE 0.9% 1,000 ML IV SCH (08:00)
[2018-02-15] MEDS: ARFORMOTEROL TARTRATE 15 MCG/2 ML VIAL.NEB NEB SCH ×2 (08:00→19:37)
--- NOTE | 2018-02-15 08:00 | P.CNS ---
Date of Consult: 02/15/18 Reason for Consult: Shortness of breath chest pain Primary Care Provider: Dr. Gutiérrez; Pulmonary-Dr. Baeza; Oncology-Dr. Swartz Chief Complaint: Chest pain History of Present Illness: Patient is 62 years of age diagnosed with extensive squamous cell carcinoma according to H&P he has progression on disease on the CT scan admitted with chest pain complaining of vicelike pressure on the chest complaining of cough congestion active smoker patient has a history of COPD Allergies No Known Allergies Allergy (Verified 02/05/18 13:05) Home Medications: Albuterol Sulfate [Proair Hfa] 8.5 gm IH DAILYPRN PRN 11/19/17 Alprazolam [Xanax] 0.5 mg PO TID PRN 11/19/17 Metformin HCl [Glucophage] 500 mg PO BIDWM 11/19/17 Metoprolol Succinate [Toprol Xl] 25 mg PO DAILY 11/19/17 Multivitamin [Multivitamins] 1 each PO DAILY 11/19/17 Omeprazole 20 mg PO DAILY 11/19/17 Sertraline HCl 100 mg PO DAILY 11/19/17 Simvastatin 40 mg PO DAILY 11/19/17 Trazodone HCl 100 mg PO BEDTIME 11/19/17 Warfarin Sodium [Coumadin] 4 mg PO DAILY 5 PM 11/19/17 Tramadol HCl [Ultram] 50 mg PO PRN PRN 02/05/18 Glycopyrrolate/Formoterol Fum [Bevespi Aerosphere Inhaler] 2 puff IH BID - Past Medical/Surgical History Diabetic: Yes -: Diabetes mellitus type 2 -: Hypertension -: COPD -: Hyperlipidemia -: History of blood clots, chronic anti coagulation -: Tobacco abuse -: 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 She has 3 children. She is - Family History Father Medical History: Hypertension, Diabetes, Kidney disease Notes: rheumatic fever Mother Medical History: Heart disease, Diabetes - Social History Smoking Status: Current every day smoker Alcohol use: Yes CD- Drugs: Yes Caffeine use: Yes Place of Residence: Home Review of Systems Respiratory: Cough, Shortness of Breath, Wheezing Gastrointestinal: Other (This chronic abdominal symptoms from her prior cancer) Physical Examination Temp Pulse Resp BP Pulse Ox 98 F 77 14 163/78 H 96 02/15/18 02:48 02/15/18 06:27 02/15/18 02:48 02/15/18 06:27 02/15/18 02:48 General: Alert, Oriented x3 Respiratory: Expiratory wheezes Cardiovascular: No edema, Normal S1 S2 Gastrointestinal: Normal bowel sounds, Soft and benign Musculoskeletal: No clubbing, No swelling Integumentary: No rashes, No breakdown Laboratory Data (last 24 hrs) 02/14/18 13:00: PT 19.9 H, INR 1.68, APTT 29.6 02/14/18 13:00: WBC 9.3, Hgb 12.4, Hct 36.9, Plt Count 364 02/14/18 13:00: B-Natriuretic Peptide 188 H 02/14/18 13:00: Sodium 136, Potassium 4.0, BUN 6, Creatinine 0.67, Glucose 243 H , Magnesium 1.1 L* - Problems (1) COPD exacerbation Current Visit: Yes Status: Acute Plan: Patient is 62 years of age active smoker recent diagnosis of presumed squamous cell cancer she has a progression of off cavitary changes in the right upper lobe including adenopathy in the lungs currently evaluated by oncology still continues to smoke no evidence of thromboembolism as patient's INR is satisfactory Dc Lovenox continue with bronchodilators and steroids labs reviewed mildly hypernatremic Dc IV fluids none in 88% on room air
[2018-02-15] MEDS: BENZONATATE 100 MG CAP PO PRN ×2 (09:17→18:24)
[2018-02-15] MEDS: TRAMADOL HCL 50 MG TAB PO PRN ×2 (09:18→18:24)
[2018-02-15] MEDS: predniSONE 20 MG TAB PO SCH ×2 (09:18→22:28)
[2018-02-15] MEDS: ALPRAZOLAM 0.25 MG TABLET PO PRN ×2 (09:18→18:25)
[2018-02-15 09:48] LABS: CKMB Creatine Kinase MB 1.2 ng/ml (0.3-4.0)
--- NOTE | 2018-02-15 10:06 | EKG ---
Test Date: 2018-02-14 Test Time: 12:41:28 Blower Insulator: JEREMIAH MEASUREMENT RESULTS: Intervals: Rate: 80 ID: [id number] QRSD: 80 QT: 384 QTc: 442 [place]: P: 75 ID: [id number] QRS: 1 T: 51 INTERPRETIVE STATEMENTS: Normal sinus rhythm with sinus arrhythmia Anterior infarct, age undetermined Abnormal ECG Compared to ECG 06/25/2007 13:34:10 Myocardial infarct finding now present Sinus tachycardia no longer present Electronically Signed On 02-15-18 10:05:24 CDT by Yosef Andrade
--- NOTE | 2018-02-15 17:06 | P.PN ---
Subjective Date of Service: 02/15/18 Primary Care Provider: Dr. Gutiérrez; Pulmonary-Dr. Baeza; Oncology-Dr. Swartz Chief Complaint: Chest pain Subjective: Doing well Physical Examination - Vital Signs Temperature: 98.0 F Blood Pressure: 154/84 Pulse: 81 Respirations: 18 Pulse Ox (%): 95 - Physical Exam General: Alert, In no apparent distress, Oriented x3, Cooperative HEENT: Atraumatic Neck: Supple Respiratory: Expiratory wheezes Cardiovascular: Normal pulses, Regular rate/rhythm Gastrointestinal: Normal bowel sounds, Soft and benign, Non-distended, No rebound, No guarding Musculoskeletal: No tenderness, No warmth Integumentary: No erythema, No warmth, No cyanosis Neurological: Normal speech, Normal strength at 5/5 x4 extr, Normal tone, Normal affect Lymphatics: No axilla or inguinal lymphadenopathy - Studies Laboratory Data (last 24 hrs) 02/15/18 09:00: Troponin I < 0.03 02/15/18 04:47: Sodium 129 L, Potassium 4.9, BUN 10, Creatinine 0.79, Glucose 239 H, Magnesium 2.1 D 02/15/18 04:47: PT 24.6 H, INR 2.07 02/15/18 04:47: WBC 14.5 H D, Hgb 11.4 L, Hct 34.0 L, Plt Count 319 02/15/18 01:01: Magnesium 1.6 L D 02/15/18 01:01: Troponin I < 0.03 02/14/18 17:47: Troponin I < 0.03 Medications List Reviewed: Yes Assessment & Plan - Problems (Diagnosis) (1) Chest pain Onset Date: 02/15/18 Current Visit: Yes Status: Acute Plan: Patient improved. CT shows no pulmonary embolism. It did show worsening of her cancer. Pulmonology will address. Patient with COPD exacerbation. Will continue with medications. Medication adjustment by pulmonology. Anticipate possible discharge tomorrow if improved. Will check to see if the patient qualifies for home oxygen and home health. Qualifiers: Chest pain type: unspecified Qualified Code(s): R07.9 - Chest pain, unspecified (2) COPD (chronic obstructive pulmonary disease) Onset Date: 02/15/18 Current Visit: Yes Status: Acute Plan: Continue with medication. Await recommendations from pulmonology Qualifiers: COPD type: COPD with acute exacerbation Qualified Code(s): J44.1 - Chronic obstructive pulmonary disease with (acute) exacerbation (3) Hypomagnesemia Onset Date: 02/15/18 Current Visit: Yes Status: Acute Plan: Will monitor and adjust appropriately. Replacement protocol in place. (4) Squamous cell lung cancer Onset Date: 02/15/18 Current Visit: Yes Status: Chronic Plan: Patient with squamous cell lung cancer. CT scan shows worsening disease Qualifiers: Laterality: right Qualified Code(s): C34.91 - Malignant neoplasm of unspecified part of right bronchus or lung (5) Diabetes mellitus Onset Date: 02/15/18 Current Visit: Yes Status: Chronic Plan: Will continue with sliding scale. Will monitor closely. Qualifiers: Diabetes mellitus type: type 2 Diabetes mellitus snf insulin use: without quill worker use Diabetes mellitus complication status: with other specified complication Qualified Code(s): E11.69 - Type 2 diabetes mellitus with other specified complication (6) Hypertension Onset Date: 02/15/18 Current Visit: Yes Status: Chronic Plan: Will continue with medication. Qualifiers: Hypertension type: essential hypertension Qualified Code(s): I10 - Essential (primary) hypertension (7) Hyperlipidemia Onset Date: 02/15/18 Current Visit: Yes Status: Chronic Plan: Will continue with medication. Qualifiers: Hyperlipidemia type: unspecified Qualified Code(s): E78.5 - Hyperlipidemia , unspecified (8) Depression with anxiety Onset Date: 02/15/18 Current Visit: Yes Status: Chronic Plan: Will continue with medication. (9) Chronic anticoagulation Onset Date: 02/15/18 Current Visit: Yes Status: Chronic Plan: Patient therapeutic at this time. Will Dc Lovenox. Will continue with Coumadin (10) History of blood clots Current Visit: Yes Status: Chronic Plan: Patient with history of blood clots. Will continue with above plan of care. Discharge Plan: Home Plan to discharge in: 24 Hours Time Spent Managing Pts Care (In Minutes): 55
[2018-02-15] MEDS: WARFARIN SODIUM 4 MG TAB PO SCH (18:24)
[2018-02-15] MEDS ORDERED: guaiFENesin 100 MG/5 ML UCUP PO PRN (20:29)
[2018-02-15] MEDS: ATORVASTATIN 20 MG TAB PO SCH (22:28)
[2018-02-15] MEDS: SERTRALINE HCL 100 MG TAB PO SCH (22:29)
[2018-02-16] MEDS: BENZONATATE 100 MG CAP PO PRN (03:24)
[2018-02-16] MEDS: PANTOPRAZOLE 40MG TABLET PO SCH (06:30)
[2018-02-16 06:37] LABS: Protime INR 2.32
[2018-02-16 06:38] LABS: Absolute Lymphocytes (CBC) 0.9 K/uL (0.7-4.9); Absolute Monocytes 0.5 K/uL (0.1-1.3); Basophils % 0.3 % (0-1.3); Hematocrit 34.4 % (36.0-45.0); Lymphocytes % 5.7 % (15.3-44.8); MCH 30.3 pg (27.0-35.0); MCV 90.6 fL (80-100); MPV 8.4 fL (7.6-11.3); Monocytes % 3.5 % (3.3-12.3)
[2018-02-16] MEDS: METOPROLOL TAR 25 MG TAB PO SCH (06:53)
[2018-02-16 07:16] LABS: Magnesium 1.5 mg/dL (1.8-2.5)
[2018-02-16] MEDS: ARFORMOTEROL TARTRATE 15 MCG/2 ML VIAL.NEB NEB SCH (07:52)
[2018-02-16] MEDS ORDERED: Magnesium Sulfate 2gm IVPB 2 G/50 ML BAG IV ONE (08:30)
[2018-02-16 08:34] LABS: Blood Morphology Comment NOT SEEN (NOT SEEN); Platelet Estimate ADEQ
[2018-02-16] MEDS: INSULIN -REGULAR HUMAN 50 UNIT/0.5 ML ML SQ SCH (08:55)
[2018-02-16] MEDS: predniSONE 20 MG TAB PO SCH (08:56)
[2018-02-16] MEDS: HYDROCODONE/APAP 7.5/325 MG TAB PO PRN (08:56)
[2018-02-16] MEDS: ALPRAZOLAM 0.25 MG TABLET PO PRN (08:56)
--- NOTE | 2018-02-16 17:03 | P.DS ---
Admission Date: 02/15/18 Discharge Date: 02/16/18 Primary Care Provider: Dr. Gutiérrez; Pulmonary-Dr. Baeza; Oncology-Dr. Swartz Disposition: ROUTINE DISCHARGE Discharge Condition: GOOD Reason for Admission: Chest pain - Problems (1) Chest pain Onset Date: 02/15/18 Status: Acute Qualifiers: Chest pain type: unspecified Qualified Code(s): R07.9 - Chest pain, unspecified (2) COPD (chronic obstructive pulmonary disease) Onset Date: 02/15/18 Status: Acute Qualifiers: COPD type: COPD with acute exacerbation Qualified Code(s): J44.1 - Chronic obstructive pulmonary disease with (acute) exacerbation (3) Hypomagnesemia Onset Date: 02/15/18 Status: Acute (4) Squamous cell lung cancer Onset Date: 02/15/18 Status: Chronic Qualifiers: Laterality: right Qualified Code(s): C34.91 - Malignant neoplasm of unspecified part of right bronchus or lung (5) Diabetes mellitus Onset Date: 02/15/18 Status: Chronic Qualifiers: Diabetes mellitus type: type 2 Diabetes mellitus termite helper insulin use: without termite helper use Diabetes mellitus complication status: with other specified complication Qualified Code(s): E11.69 - Type 2 diabetes mellitus with other specified complication (6) Hypertension Onset Date: 02/15/18 Status: Chronic Qualifiers: Hypertension type: essential hypertension Qualified Code(s): I10 - Essential (primary) hypertension (7) Hyperlipidemia Onset Date: 02/15/18 Status: Chronic Qualifiers: Hyperlipidemia type: unspecified Qualified Code(s): E78.5 - Hyperlipidemia , unspecified (8) Depression with anxiety Onset Date: 02/15/18 Status: Chronic (9) Chronic anticoagulation Onset Date: 02/15/18 Status: Chronic (10) History of blood clots Status: Chronic Brief History of Present Illness: 62-year-old female presented emergency room with chest pain. The patient reports that she had chest pain about an hr and a half ago. It was to the center of her chest. It felt like a vice like sensation. She denied any fever. Some sweats noted. She reports nausea but no vomiting. Over the last week she has had a right axillary biopsy to evaluate underlying cancer. She was recently diagnosed with squamous cell lung cancer. She has a history of goblet cell cancer. The patient reports that she had been off of her Coumadin for over 5 days to have the biopsy done on Thursday. She restarted her Coumadin on Thursday. In the ER patient was evaluated. Vital signs stable. Hemoglobin 12, white count 9.3, INR 1.6. Sodium 136, potassium 4.0, magnesium low at 1.1, GFR 89. Glucose 243. BNP slightly elevated. Troponin unremarkable. Chest x-ray showed a cavitary lesion to the right upper lobe. CT of the chest showed no pulmonary embolism. Due to the nature of her symptoms the patient was admitted for further evaluation and treatment. I was asked to admit the patient. When I saw the patient the ER, she appeared comfortable but still reported some mild pain. Patient with history of squamous cell lung cancer, COPD, diabetes, hypertension, hyperlipidemia. She has a history of blood clots in the past and takes chronic Coumadin. She still smokes tobacco. Hospital Course: During her stay chest pain improved. Patient was found to have COPD exacerbation complicated with history of squamous cell carcinoma. CT scan shows progression of squamous cell carcinoma. Patient was evaluated by pulmonology. Patient was given COPD treatment. Patient was also found to have the need for home oxygen. Her symptoms improved. At discharge patient will continue with prednisone 20 mg 1 pill twice daily for 5 days then 1 pill once daily for 5 days. Medication for cough and congestion will also be provided. For her COPD the patient will continue with Bevespi twice daily and Albuterol 3 times a day as needed for shortness of breath. Patient will be set up with home oxygen to maintain sats above 90%. For her COPD. Patient will follow up with oncology to further evaluate and treat her squamous cell carcinoma. Patient is in current progress for staging. Patient to have a bone scan and PET scan here soon. Recommendations for the patient follow up with pulmonology as an outpatient to further monitor. Recommendation is for the patient to follow up with oncology to further address her lung condition. Patient has hypertension. This remained stable during the course of her stay. Patient will continue with metoprolol 25 mg 1 pill daily. Recommendation is to maintain blood pressures less 150/80. Further adjustment can be done by her PCP. Patient has diabetes. This remained stable during the course of her stay. She will continue with metformin. Recommendation is to maintain blood sugars less 140 fasting and less than 2 after meals. Further adjustment can be done by her PCP. Patient has GERD. Patient continue with Prilosec daily. Patient has hyperlipidemia. She will continue with her medication-Zocor. Patient with depression/anxiety. Patient will continue with Zoloft. Patient also takes benzodiazepine medication as needed for anxiety. The patient also takes trazodone for insomnia. She may continue with his medication. Patient with history of blood clots. Patient on chronic anti coagulation therapy. Patient will continue with chronic anti coagulation therapy-Coumadin 4 mg daily. Patient will have her INR checked weekly by her PCP. Further adjustment can be done by her PCP. Patient had low magnesium. Patient will be started on magnesium oxide daily. Recommendation to recheck BMP and magnesium in 1 week. Patient with chronic pain. Patient may continue with tramadol as needed for pain. Further adjustment in medication can be done by her PCP. Vital Signs/Physical Exam: Temp Pulse Resp BP Pulse Ox 97.8 F 72 16 158/79 H 97 02/16/18 11:40 02/16/18 11:40 02/16/18 11:40 02/16/18 11:40 02/16/18 11:40 General: Alert, In no apparent distress, Oriented x3, Cooperative HEENT: Atraumatic Neck: Supple Respiratory: Expiratory wheezes (Less wheezing noted) Cardiovascular: Normal pulses, Regular rate/rhythm Gastrointestinal: Normal bowel sounds, Soft and benign, Non-distended Musculoskeletal: No erythema, No tenderness, No warmth Integumentary: No tenderness/swelling, No erythema, No warmth, No cyanosis Neurological: Normal speech, Normal strength at 5/5 x4 extr, Normal tone, Normal affect Lymphatics: No axilla or inguinal lymphadenopathy Laboratory Data at Discharge: WBC 15.5 K/uL (4.3-10.9) H 02/16/18 05:49 Hgb 11.5 g/dL (12.0-15.0) L 02/16/18 05:49 Hct 34.4 % (36.0-45.0) L 02/16/18 05:49 Plt Count 334 K/uL (152-406) 02/16/18 05:49 PT 27.6 SECONDS (9.5-12.5) H 02/16/18 05:49 INR 2.32 02/16/18 05:49 APTT 29.6 SECONDS (24.3-36.9) 02/14/18 13:00 Sodium 130 mEq/L (135-145) L 02/16/18 05:49 Potassium 5.0 mEq/L (3.6-5.0) 02/16/18 05:49 BUN 10 mg/dL (6-20) 02/16/18 05:49 Creatinine 0.70 mg/dL (0.44-1.00) 02/16/18 05:49 Glucose 254 mg/dL (65-120) H 02/16/18 05:49 Magnesium 1.5 mg/dL (1.8-2.5) L D 02/16/18 05:49 Troponin I < 0.03 ng/mL (<0.03) 02/15/18 09:00 B-Natriuretic Peptide 188 pg/ml (<=100) H 02/14/18 13:00 Home Medications: Albuterol Sulfate [Proair Hfa] 8.5 gm IH DAILYPRN PRN 11/19/17 Alprazolam [Xanax*] 0.5 mg PO TID PRN 11/19/17 Metformin HCl [Glucophage*] 500 mg PO BIDWM 11/19/17 Metoprolol Succinate [Toprol Xl*] 25 mg PO DAILY 11/19/17 Multivitamin [Multivitamins] 1 each PO DAILY 11/19/17 Omeprazole 20 mg PO DAILY 11/19/17 Sertraline HCl 100 mg PO DAILY 11/19/17 Simvastatin 40 mg PO DAILY 11/19/17 Trazodone HCl 100 mg PO BEDTIME 11/19/17 Warfarin Sodium [Coumadin*] 4 mg PO DAILY 5 PM 11/19/17 Tramadol HCl [Ultram] 50 mg PO PRN PRN 02/05/18 Glycopyrrolate/Formoterol Fum [Bevespi Aerosphere Inhaler] 2 puff IH BID Benzonatate [Tessalon Perle] 200 mg PO TID PRN #30 cap 02/16/18 Guaifenesin [Mucinex] 600 mg PO BID PRN #30 tab.er.12h 02/16/18 Magnesium Oxide [Mag 0X Tab] 400 mg PO DAILY #30 tab 02/16/18 Prednisone [Prednisone*] 20 mg PO SEECOM #15 tab 02/16/18 New Medications: Benzonatate [Tessalon Perle] 200 mg PO TID PRN #30 cap PRN Reason: Cough Guaifenesin [Mucinex] 600 mg PO BID PRN #30 tab.er.12h PRN Reason: Cough Magnesium Oxide [Mag 0X Tab] 400 mg PO DAILY #30 tab Prednisone [Prednisone*] 20 mg PO SEECOM #15 tab Patient Discharge Instructions: 1. Patient will need to follow up with a PCP in 1 week to follow up this hospitalization. 2. Patient presented with chest pain. Patient found to have COPD exacerbation complicated with history of squamous cell carcinoma. CT scan shows progression of squamous cell carcinoma. At discharge patient will continue with prednisone 20 mg 1 pill twice daily for 5 days then 1 pill once daily for 5 days. Medication for cough and congestion will also be provided. For her COPD the patient will continue with Bevespi twice daily and Albuterol 3 times a day as needed for shortness of breath. Patient will be set up with home oxygen to maintain sats above 90%. For her COPD. Patient will follow up with oncology to further evaluate and treat her squamous cell carcinoma. Patient is in current progress for staging. Patient to have a bone scan and PET scan here soon. Recommendations for the patient follow up with pulmonology as an outpatient to further monitor. Recommendation is for the patient to follow up with oncology to further address her lung condition. 3. Patient has hypertension. Patient will continue with metoprolol 25 mg 1 pill daily. Recommendation is to maintain blood pressures less 150/80. Further adjustment can be done by her PCP. 4. Patient has diabetes. She will continue with metformin. Recommendation is to maintain blood sugars less 140 fasting and less than 2 after meals. Further adjustment can be done by her PCP. 5. Patient has GERD. Patient continue with Prilosec daily. 6. Patient has hyperlipidemia. She will continue with her medication- Zocor. 7. Patient with depression/anxiety. Patient will continue with Zoloft. Patient also takes benzodiazepine medication as needed for anxiety. The patient also takes trazodone for insomnia. She may continue with his medication. 8. Patient with history of blood clots. Patient on chronic anti coagulation therapy. Patient will continue with chronic anti coagulation therapy-Coumadin 4 mg daily. Patient will have her INR checked weekly by her PCP. Further adjustment can be done by her PCP. 9. Patient had low magnesium. Patient will be started on magnesium oxide daily. Recommendation to recheck BMP and magnesium in 1 week. 10. Patient with chronic pain. Patient may continue with tramadol as needed for pain. Diet: ADA Activity: Fall precautions Time spent managing pt's care (in minutes): 55
== END 2018-02-16 12:11 | disposition home or self-care (01) | DRG 191 ==
LOC: ER 12:11 → ERHOLD 13:46 → 4TH 16:43 → OBSVTOIN 02-15 14:24
PROVIDERS: ADMIT Family Medicine; ATTEND Family Medicine
DX: J44.1 Chronic obstructive pulmonary disease with (acute) exacerbation (principal); C34.91 Malignant neoplasm of unspecified part of right bronchus or lung; E83.42 Hypomagnesemia; E11.9 Type 2 diabetes mellitus without complications; I10 Essential (primary) hypertension; E78.5 Hyperlipidemia, unspecified; F41.8 Other specified anxiety disorders; K21.9 Gastro-esophageal reflux disease without esophagitis; F17.210 Nicotine dependence, cigarettes, uncomplicated; Z79.01 Long term (current) use of anticoagulants
CPT/HCPCS: 36415; 71045; 71275; 80048; 81003; 82550; 82553; 82962; 83735; 83880; 84484; 85025; 85610; 85730; 87070; 87205; 93005; 93971; 96372; 97163; 99285; G0378; J1650; J2405; J3475; J7512; J7605; Q9967

== ENCOUNTER 2018-02-22 04:24 | Inpatient (IN) | payer OTHER ==
--- OUTSIDE RECORDS SUMMARY | 2018-02-22 04:27 | XMS REPORT ---
:1955 [facility] Address [address] [place] [address] Dr. Dumont [address] [place] [id number] Care Team Providers Name Role Phone ANGELITO ROCK Unavailable Unavailable Problems This patient has no known problems. Allergies, Adverse Reactions, Alerts This patient has no known allergies or adverse reactions. Medications This patient has no known medications. Results Test Description Test Time Test Comments Text Results Atomic Results Result Comments FINE NEEDLE ASPIRATE 2018-02-03 09:41:00 Medical Cytology Report BY EBUS Case: [id number] Authorizing Provider: Natanael Rock MD Collected: 01/11/2018 [id number] Ordering Location: [facility] Received: 01/12/2018 1001 PERIOPERATIVE SERVICES Pathologist: Adrianna Shaw Specimen: Lymph Node, Subcarinal, Station 7 Addendum is issued to report results of PD-L1 Testing from [facility]. The diagnosis remains the same.PD-L1 - No expression, 0% proportion score, Intensity- 0Addendum electronically signed by Adrianna Shaw on 02/03/2018 at 9:41 AMSTATION 7 LYMPH NODE, FNA BY CLINICIAN (DIRECT SMEARS AND CELL BLOCK OF ASPIRATE): - NON SMALL CELL CARCINOMA, SQUAMOUS CELL CARCINOMA Signing Pathologist Direct Phone Line: [phone] signed by Adrianna Shaw on 01/13/2018 at [...] see cytopathology report [id number], [id number] and 457. [id number], [id number], [id number] patient's electronic medical record: diagnosis of right lung mass with mediastinal lymphadenopathy; remote history of appendiceal goblet cell CA that required a partial colectomy and adjuvant chemotherapy, [facility] FNA10 direct smear slidesPrepared cell block(A2) from sample in 35 ml cytorich red fixativeCollected: [id number]: [id number] (5:54PM, [place])[facility], Department of Pathology, [address] [place] [address], [facility], Department of [facility]ology, [address] [place] [address], RAD, CHEST, 1 VIEW, 2018-01-14 07:59:00 FINAL [...] MDReport Verified Date/Time: 01/14/2018 07:59:41 Reading Location: [address] Reading Room NEEDLE ASPIRATE 2018-01-13 14:50:00 Medical Cytology Report BY EBUS Case: [id number] Authorizing Provider: Natanael Rock MD Collected: 01/11/2018 [id number] Ordering Location: [facility] Received: 01/12/2018 1003 PERIOPERATIVE SERVICES Pathologist: Adrianna Shaw Specimen: Lymph Node, Lower Paratracheal, Right, Station 4R 4R LYMPH NODE, FNA BY CLINICIAN (DIRECT SMEARS AND CELL BLOCK OF ASPIRATE): - NON-SMALL CELL CARCINOMA, SQUAMOUS CELL CARCINOMA Signing Pathologist Direct Phone Line: [phone] signed by Adrianna Shaw on 01/13/2018 at [...] see cytopathology report [id number], 456 and 457. [id number], [id number], [id number] patient's electronic medical record: diagnosis of right lung mass with mediastinal lymphadenopathy; remote history of appendiceal goblet cell CA that required a partial colectomy and adjuvant chemotherapy, received at [id number] LYMPH NODE FNA 4 direct smear slidesPrepared cell block(A2) from sample in 30 ml cytorich red fixativeCollected: [id number]: [id number] (5:54PM, [place])[facility], Department of Pathology, [address] [place] [address], [facility], Department of [facility], [address] [place] [address], CYTOLOGY 2018-01-13 14:45:00 Medical Cytology Report Case: [id number] Authorizing Provider: Natanael Rock MD Collected: 01/11/2018 1718 Ordering Location: [facility] Received: 01/12/2018 1006 PERIOPERATIVE SERVICES Pathologist: Adrianna Shaw Specimen: Lung, Right Lower Lobe RIGHT LOWER LOBE LUNG, BRONCHIAL WASHINGS (CYTOSPINS): - RARE MILDLY ATYPICAL SQUAMOUS CELLS PRESENT Signing Pathologist Direct Phone Line: [phone] signed by Adrianna Shaw on 01/13/2018 at 2:45 PMRare mildly atypical squamous cells are seen with orangeophilic cytoplasm. These may abrasives sales representative reactive atypia or may suggest more significant lesion. Please correlate with concurrent cytology cases.Please also see cytopathology report [id number], 455 and 456. [id number] patient's electronic medical record: diagnosis of right lung mass with mediastinal lymphadenopathy; remote history of appendiceal goblet cell CA that required a partial colectomy and adjuvant chemotherapy, received at [facility] LOWER LOBE LUNG BRONCHIAL WASHINGPrepared 4 cytospins from 15 ml colorless fluidCollected: [id number]: [id number] [facility], [facility] of [facility], [address] [place] [address], [facility], Department of Pathology, [address] [place] [address], CYTOLOGY 2018-01-13 12:23:00 Medical Cytology Report Case: [id number] Authorizing Provider: Natanael Rock MD Collected: 01/11/2018 1712 Ordering Location: [facility] Received: 01/12/2018 1005 PERIOPERATIVE SERVICES Pathologist: Adrianna Shaw Specimen: Lung, Right Lower Lobe RIGHT LOWER LOBE LUNG, BRONCHIAL BRUSHING (CYTOSPINS): - NO MALIGNANT CELLS IDENTIFIED Signing Pathologist Direct Phone Line: [phone] signed by Adrianna Shaw on 01/13/2018 at 12:23 PMPlease also see cytopathology report [id number], [id number] and 457. [id number] patient's electronic medical record: diagnosis of right lung mass with mediastinal lymphadenopathy; remote history of appendiceal goblet cell CA that required a partial colectomy and adjuvant chemotherapy, received at [facility] LOWER LOBE LUNG BRUSHING 2 cytospins prepared from unfixed brush tipCollected: [id number]: [id number] [facility], [facility] of [facility]ology, [address] [place] [address], [facility]vmfiC[facility], Department of Pathology, [address] [place] [address], POCT-GLUCOSE METER 2018-01-11 13:54:00 Test Item Value Reference Range Comments POC-GLUCOSE METER (HIEU) (test 116 mg/dL 70-110 TESTED AT [address] ewvf=7826) [facility] [address] RAD, CHEST, PA OR AP, 1 [id number] 17:09:00Reason for exam:->pre- opShould this be performed [...] MDReport Verified Date/Time: 01/08/2018 17:09:28 Reading Location: [address] Consult Reading Room COMPREHENSIVE METABOLIC [id number] 16:51:00 Test Item Value Reference Range Comments TOTAL PROTEIN (BEAKER) 7.4 gm/dL 6.0-8.3 (test kcyf=756) ALBUMIN (BEAKER) (test 4.0 g/dL 3.5-5.0 cyig=1777) ALKALINE PHOSPHATASE 65 U/L 40-150 (BEAKER) (test wein=717) BILIRUBIN TOTAL (BEAKER) 0.6 mg/dL 0.2-1.2 (test liin=406) SODIUM (BEAKER) (test 133 meq/L 136-145 cyee=779) POTASSIUM (BEAKER) (test 4.6 meq/L 3.5-5.1 vpqs=963) CHLORIDE (BEAKER) (test 98 meq/L 98-107 xgwk=055) CO2 (BEAKER) (test 27 meq/L 22-29 dcjz=414) BLOOD UREA NITROGEN 6 mg/dL 7-21 (BEAKER) (test ytxn=488) CREATININE (BEAKER) (test 0.69 mg/dL 0.57-1.25 vwpe=356) GLUCOSE RANDOM (BEAKER) 120 mg/dL 70-105 (test qxnw=418) CALCIUM (BEAKER) (test 9.5 mg/dL 8.4-10.2 elfq=137) AST (SGOT) (BEAKER) (test 18 U/L 5-34 koqw=605) ALT (SGPT) (BEAKER) (test 21 U/L 6-55 cltt=577) EGFR (BEAKER) (test 86 mL/min/1.73 sq m ESTIMATED GFR IS NOT uejw=4499) ACCURATE CREATININE CLEARANCE IN PREDICTING GLOMERULAR FILTRATION RATE. ESTIMATED GFR IS NOT APPLICABLE FOR DIALYSIS PATIENTS. [id number] 16:49:00 Test Item Value Reference Range Comments PROTIME (BEAKER) (test roqq=600) 15.1 seconds 11.7-14.7 INR (BEAKER) (test tzks=416) 1.2 <=5.9 PARTIAL THROMBOPLASTIN TIME (BEAKER) (test 27.1 seconds 22.5-36.0 lbjm=837) RECOMMENDED COUMADIN/WARFARIN INR THERAPY RANGESSTANDARD DOSE: 2.0 - 3.0 Includes: PROPHYLAXIS forvenous thrombosis, systemic embolization; TREATMENT for venous thrombosis and/or pulmonary embolus.HIGH RISK: Target INR is 2.5-3.5 for patients with mechanical heart valves.CBC W/PLT COUNT & AUTO [id number] 16:35:00 Test Item Value Reference Range Comments WHITE BLOOD CELL COUNT (BEAKER) (test rcmp=392) 8.4 K/ L 3.5-10.5 RED BLOOD CELL COUNT (BEAKER) (test aold=272) 4.19 M/ L 3.93-5.22 HEMOGLOBIN (BEAKER) (test xuxr=140) 13.0 GM/DL 11.2-15.7 HEMATOCRIT (BEAKER) (test xjod=381) 38.7 % 34.1-44.9 MEAN CORPUSCULAR VOLUME (BEAKER) (test yild=298) 92.4 fL 79.4-94.8 MEAN CORPUSCULAR HEMOGLOBIN (BEAKER) (test 31.0 pg 25.6-32.2 yswq=944) MEAN CORPUSCULAR HEMOGLOBIN CONC (BEAKER) (test 33.6 GM/DL 32.2-35.5 ecuv=851) RED CELL DISTRIBUTION WIDTH (BEAKER) (test 13.2 % 11.7-14.4 rmrj=069) PLATELET COUNT (BEAKER) (test guxy=518) 246 K/CU MM 150-450 MEAN PLATELET VOLUME (BEAKER) (test atjy=569) 9.3 fL 9.4-12.3 NUCLEATED RED BLOOD CELLS (BEAKER) (test 0 /100 WBC 0-0 qpey=351) NEUTROPHILS RELATIVE PERCENT (BEAKER) (test 64 % jpss=442) LYMPHOCYTES RELATIVE PERCENT (BEAKER) (test 28 % kumz=838) MONOCYTES RELATIVE PERCENT (BEAKER) (test 6 % gkwh=268) EOSINOPHILS RELATIVE PERCENT (BEAKER) (test 1 % sgrt=871) BASOPHILS RELATIVE PERCENT (BEAKER) (test 1 % jajt=492) NEUTROPHILS ABSOLUTE COUNT (BEAKER) (test 5.31 K/ L 1.56-6.13 jbao=629) LYMPHOCYTES ABSOLUTE COUNT (BEAKER) (test 2.34 K/ L 1.18-3.74 mcwo=676) MONOCYTES ABSOLUTE COUNT (BEAKER) (test 0.53 K/ L 0.24-0.36 vsld=199) EOSINOPHILS ABSOLUTE COUNT (BEAKER) (test 0.11 K/ L 0.04-0.36 sdcn=080) BASOPHILS ABSOLUTE COUNT (BEAKER) (test 0.04 K/ L 0.01-0.08 ubnk=500) IMMATURE GRANULOCYTES-RELATIVE PERCENT (BEAKER) 0 % 0-1 (test idrw=3255)
[2018-02-22 04:56] LABS: Absolute Lymphocytes (CBC) 1.5 K/uL (0.7-4.9); Absolute Monocytes 1.3 K/uL (0.1-1.3); Absolute Neutrophil 22.9 K/uL (1.8-8.0); Basophils % 0.4 % (0-1.3); Hematocrit 38.3 % (36.0-45.0); Lymphocytes % 5.9 % (15.3-44.8); MCH 30.5 pg (27.0-35.0); MCV 93.5 fL (80-100); MPV 8.3 fL (7.6-11.3)
[2018-02-22] MEDS ORDERED: METOPROLOL TARTRATE 5 MG/5 ML INJ IV ONE (04:57)
[2018-02-22] MEDS ORDERED: NA CHLORIDE 0.9% 1,000 ML ONE (05:00)
[2018-02-22] MEDS ORDERED: ONDANSETRON 4 MG/2 ML VIAL ONE (05:04)
[2018-02-22 05:10] LABS: Protime INR 7.11
[2018-02-22] MEDS ORDERED: MORPHINE 10 MG/ML VIAL ONE (05:14)
[2018-02-22 05:18] LABS: Albumin 3.5 g/dL (3.2-5.5); Bilirubin Direct 0.1 mg/dL (0-0.2); Bilirubin Total 0.7 mg/dL (0.3-1.2); Protein, Total 7.8 g/dL (6.0-8.3)
[2018-02-22 05:24] LABS: Magnesium 1.2 mg/dL (1.8-2.5); Potassium 5.6 mEq/L (3.6-5.0)
[2018-02-22 05:33] LABS: Blood Morphology Comment NOT SEEN (NOT SEEN); Platelet Estimate INCR; Platelets, Giant FEW
--- NOTE | 2018-02-22 05:36 | ER ---
Nurse's Notes [facility] Department Name: Cherise Ordaz Age: 62 yrs Sex: Female : 1955 Arrival Date: 02/22/2018 Time: 04:27 Bed 4 Private MD: Diagnosis: Chest pain. Atrail fibrillation with RVR. Hypomagnesemia. Hyperkalemia. Hyponatremia Presentation: 02/22 04:29 Presenting complaint: EMS states: "Patient Complains of chest pain and difficulty ao breathing that started yesterday about 1900. 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 Patient has a history of COPD.". Transition of care: patient was not received from another setting of care. Onset of symptoms was February 21, 2018 at 18:00. Care prior to arrival: None. 04:29 Method Of Arrival: EMS: [facility] ao 04:29 Acuity: JOSE 3 ao Triage Assessment: 04:34 General: Appears uncomfortable, Behavior is agitated. Pain: Complains of pain in chest ao Pain does not radiate. Pain currently is 9 out of 10 on a pain scale. EENT: No signs and/or symptoms were reported regarding the EENT system. Neuro: Level of Consciousness is awake, alert, obeys commands, Oriented to person, place, time, situation, Appropriate for age Moves all extremities. Gait is steady, Speech is normal, Facial symmetry appears normal. Cardiovascular: Reports chest pain, nausea, shortness of breath, vomiting, Patient's skin is warm and dry. Respiratory: Airway is patent Respiratory effort is even, unlabored, Respiratory pattern is regular. GI: Abdomen is obese. : No signs and/or symptoms were reported regarding the genitourinary system. Derm: No signs and/or symptoms reported regarding the dermatologic system. Musculoskeletal: No signs and/or symptoms reported regarding the musculoskeletal system. Historical: - Allergies: 04:34 No Known Allergies; ao - Home Meds: 04:34 Albuterol Inhl [Active]; alprazolam 0.5 mg Oral Tb24 1 tab once daily [Active]; ao metformin 500 mg Oral Tb24 1 tab 2 times per day [Active]; bevespi [Active]; metoprolol tartrate 25 mg Oral tab 1 tab once daily [Active]; omeprazole 20 mg Oral cpDR 1 cap once daily [Active]; sertraline 100 mg Oral tab 1 tab once daily [Active]; simvastatin 40 mg Oral tab 1 tab once daily [Active]; trazodone 100 mg Oral tab 1 tab as needed [Active]; Warfarin Oral [Active]; - PMHx: 04:34 Diabetes - NIDDM; Hyperlipidemia; ao 05:34 squamous cell carcinoma; ao - PSHx: 04:34 None; ao - Immunization history:: Adult Immunizations up to date. - Social history:: Smoking status: Patient uses tobacco products, smokes one-half pack cigarettes per day, Patient/guardian denies using alcohol, street drugs. Screenin:37 Abuse screen: Denies threats or abuse. Denies injuries from another. Nutritional ao screening: No deficits noted. Tuberculosis screening: No symptoms or risk factors identified. Fall Risk None identified. Assessment: 04:37 General: See triage note. ao 04:51 Reassessment: Dr Richards ordered Lopressor 5 mg IV X3. Before given the fist dose BP was ao check to be 83/71. Dr richards was notified who anted to shock patient. Patient was moved to another room. 04:54 Reassessment: Patient medicated with morphine 2 MG IV as ordered by Dr Richards. ao 04:55 Reassessment: Patient shocked with 200. ao 04:57 Reassessment: Patient still in Afib with a pulse of 141 and BP 117/71. Dr Richards ordered ao to do one Lopressor IVP. Reassessment: Patient BP is 106/[address] richards ordered Another Lopressor. 05:03 Reassessment: Bp 95/79 Dr richards ordered 200 ML Bolus. ao 05:09 Reassessment: BP 118/[address] richards ordered third Lopressor. ao 05:29 Reassessment: Patient states she is feeling better. BP 93/69 HR is 103. ao 05:50 Reassessment: Patient was taken of BiPAP with respiratory in the room to give ao medication. Patient was 95 and above for about [address] richards was notified and ordered to DC BI PAP and had Patient RA. Patient is been monitored. 06:20 Reassessment: Patient appears in no apparent distress at this time. Patient and/or ao family updated on plan of care and expected duration. Pain level reassessed. Patient is alert, oriented x 3, equal unlabored respirations, skin warm/dry/pink. Patient to be admitted to the hospital. Patient to be taken to ICU after shift change. 07:17 Reassessment: Patient appears in no apparent distress at this time. Checked blood ae1 pressure manually, to verify low reading. Patient denies dizziness or feeling lightheaded. 07:56 Reassessment: Patient c/o back pain , repositioned and will administer PRN medication ae1 per [employer] orders. 08:23 Reassessment: Called report to Amy, dennis nurse in ICU, registration notified ae1 report has been called. Vital Signs: 04:31 BP 168 / 140; Pulse 151; Resp 22; Temp 97.8(A); Pulse Ox 100% on 2 lpm NC; Weight 82.55 ao kg (R); Height 5 ft. 5 in. (165.10 cm); Pain 0/10; 04:52 BP 83 / 71; ao 04:54 BP 99 / 35; Pulse 138; Resp 28; Pulse Ox 99% on BiPAP; ao 04:57 BP 117 / 71; Pulse 141; ao 05:00 BP 106 / 74; Pulse 112; ao 05:03 BP 95 / 79; Pulse 103; ao 05:09 BP 118 / 87; Pulse 94; ao 05:19 BP 93 / 69; Pulse 117; Resp 20; Pulse Ox 99% on 30% BiPAP; mt 05:50 BP 113 / 112; Pulse 105; Resp 18; Pulse Ox 100% on BiPAP; ao 06:00 Temp 97.5(A); ao 06:16 BP 131 / 46; Pulse 108; Resp 16; Pulse Ox 98% on R/A; Pain 0/10; ao 07:13 BP 110 / 76 RA Sitting (man/reg); ap3 08:15 BP 110 / 71; Pulse 91; Resp 20; Temp 97.5(A); Pulse Ox 96% on R/A; ae1 04:31 Body Mass Index 30.29 (82.55 kg, 165.10 cm) ao ED Course: 04:27 Patient arrived in ED. em1 04:27 Clyde Richards MD is Attending Physician. pkl 04:29 Pérez Servin, RN is Primary Nurse. ao 04:31 Triage completed. ao 04:32 Arm band placed on right wrist. Patient placed in an exam room, Patient notified of ao wait time. 04:37 Patient has correct armband on for positive identification. Pulse ox on. NIBP on. ao 04:39 Inserted saline lock: 20 gauge in right antecubital area, using aseptic technique. ao ,using aseptic technique. FRANK Muñiz Blood collected. 05:08 Notified ED physician of a critical lab result(s). wbc of 25.8. fc 05:09 X-ray completed. Portable x-ray completed in exam room. Patient tolerated procedure kw well. 05:09 Notified ED physician of a critical lab result(s). inr of 7.11. fc 05:10 XRAY Chest (1 view) In Process Unspecified. EDMS 05:23 Notified ED physician of a critical lab result(s). potassium of 5.6, glucose of 577, fc mag of 1.2. 05:28 Rogelio Huang MD is Hospitalizing Provider. pkl 05:35 Assist provider with cardioversion (synchronized) with pads, for treatment of A fib ao with 200 joules Set up for procedure. Performed by Clyde Richards MD Monitored with Post procedure rhythm is unchanged. Patient tolerated well. By Reta Rodriguez. 06:51 CPK Sent. ao 06:51 Ckmb Sent. ao 06:51 Basic Metabolic Panel Sent. ao 06:58 Straight cath inserted, using sterile technique, 16 Fr. Not enough urine return for mt specimen, tube removed. 07:04 Report given to FRANK Machuca. ao 08:47 Patient admitted, IV remains in place. ae1 Administered Medications: 04:50 Drug: morphine 2 mg Route: IVP; Site: right antecubital; ao 06:50 Follow up: Response: No adverse reaction ao 04:54 Drug: NS 0.9% 1000 ml Route: IV; Rate: 100 ml/hr; Site: right antecubital; ao 06:51 Follow up: IV Status: Infusion continued upon admission ao 04:58 Drug: Lopressor 5 mg Route: IVP; Site: right antecubital; ao 05:01 Drug: Lopressor 5 mg Route: IVP; Site: right antecubital; ao 05:11 Drug: Lopressor 5 mg Route: IVP; Site: right antecubital; ao 06:50 Follow up: Response: No adverse reaction ao 05:35 Drug: Magnesium Sulfate 2 grams Route: IVPB; Infused Over: 2 hrs; Site: right bs1 antecubital; 06:50 Follow up: IV Status: Completed infusion; IV Intake: 50ml ao 05:39 Drug: Kayexalate 30 grams Route: PO; bs1 06:50 Follow up: Response: No adverse reaction ao 08:11 Drug: Tylenol 500 mg Route: PO; ae1 08:47 Follow up: Response: Other; medication administered upon admission. ae1 Point of Care Testing: Blood Glucose: 07:57 Blood Glucose: 383 mg/dL; ae1 Ranges: Intake: 06:50 IV: 50ml; Total: 50ml. ao Outcome: 05:35 Decision to Hospitalize by Provider. pkl 08:45 Attestation : I agree with the charting done by student worker Sana Hough.. ae1 08:45 Admitted to ICU accompanied by nurse, family with patient, via stretcher, room BED 6 ICU, with oxygen, on monitor, with chart, Report called to FRANK Reyes 08:45 Condition: stable 08:45 Instructed on the need for admit, Demonstrated understanding of instructions. 08:48 Patient left the ED. ae1 Signatures: Dispatcher [employer] EDMS Clyde Richards MD MD pkl Chretien, Felicia RN RN Sarwat Bustamante em1 Sonia Pappas Alex, RN RN Madan Jack, RN RN aeCiara Jackson mt, Brittany RN RN bs1 Sana Hough ap3 Corrections: (The following items were deleted from the chart) 06:21 06:20 Reassessment: Patient appears in no apparent distress at this time. Patient ao and/or family updated on plan of care and expected duration. Pain level reassessed. Patient is alert, oriented x 3, equal unlabored respirations, skin warm/dry/pink. ao
--- NOTE | 2018-02-22 05:36 | EDPHYS ---
Physician Documentation [facility] Name: Cherise Ordaz Age: 62 yrs Sex: Female : 1955 Arrival Date: 02/22/2018 Time: 04:27 Bed 4 Private MD: ED Physician Clyde Palencia HPI: 02/22 05:20 This 62 yrs old Female presents to ER via EMS with complaints of Respiratory pkl Distress. 05:20 The patient has shortness of breath at rest. Onset: The symptoms/episode began/occurred pkl yesterday. Associated signs and symptoms: Pertinent positives: chest pain. Patient said she was diagnosed with lung cancer 3 months ago.. Historical: - Allergies: 04:34 No Known Allergies; ao - Home Meds: 04:34 Albuterol Inhl [Active]; alprazolam 0.5 mg Oral Tb24 1 tab once daily [Active]; ao metformin 500 mg Oral Tb24 1 tab 2 times per day [Active]; bevespi [Active]; metoprolol tartrate 25 mg Oral tab 1 tab once daily [Active]; omeprazole 20 mg Oral cpDR 1 cap once daily [Active]; sertraline 100 mg Oral tab 1 tab once daily [Active]; simvastatin 40 mg Oral tab 1 tab once daily [Active]; trazodone 100 mg Oral tab 1 tab as needed [Active]; Warfarin Oral [Active]; - PMHx: 04:34 Diabetes - NIDDM; Hyperlipidemia; ao 05:34 squamous cell carcinoma; ao - PSHx: 04:34 None; ao - Immunization history:: Adult Immunizations up to date. - Social history:: Smoking status: Patient uses tobacco products, smokes one-half pack cigarettes per day, Patient/guardian denies using alcohol, street drugs. ROS: 05:22 Eyes: Negative for injury, pain, redness, and discharge, ENT: Negative for injury, pkl pain, and discharge, Neck: Negative for injury, pain, and swelling. 05:22 Cardiovascular: Positive for chest pain, palpitations. 05:22 Respiratory: Positive for shortness of breath. 05:22 Abdomen/GI: Negative for abdominal pain, nausea, vomiting, and diarrhea. 05:22 Back: Negative for acute changes. 05:22 : Negative for urinary symptoms. 05:22 MS/extremity: Negative for acute changes. 05:22 Skin: Negative for rash. 05:22 Neuro: Negative for altered mental status. Exam: 05:22 Head/Face: Normocephalic, atraumatic. Eyes: Pupils equal round and reactive to light, pkl extra-ocular motions intact. Lids and lashes normal. Conjunctiva and sclera are non-icteric and not injected. Cornea within normal limits. Periorbital areas with no swelling, redness, or edema. ENT: Nares patent. No nasal discharge, no septal abnormalities noted. Tympanic membranes are normal and external auditory canals are clear. Oropharynx with no redness, swelling, or masses, exudates, or evidence of obstruction, uvula midline. Mucous membranes moist. Neck: Trachea midline, no thyromegaly or masses palpated, and no cervical lymphadenopathy. Supple, full range of motion without nuchal rigidity, or vertebral point tenderness. No Meningismus. Chest/axilla: Normal chest wall appearance and motion. Nontender with no deformity. No lesions are appreciated. 05:22 Cardiovascular: Rate: tachycardic, actual rate is 160 bpm, Rhythm: irregularly irregular. 05:22 ECG was reviewed by the Attending Physician. 05:22 Respiratory: mild respiratory distress is noted, Respirations: labored breathing, that is mild, Breath sounds: bronchial sounds, that are mild, are scattered, rhonchi, that are mild, are scattered. 05:22 Abdomen/GI: Bowel sounds: normal. 05:22 Back: Exam negative for acute changes. 05:22 : Exam negative for acute changes. 05:22 Musculoskeletal/extremity: Exam is negative for acute changes. 05:22 Skin: Exam negative for rash. 05:22 Neuro: Orientation: is normal, Mentation: is normal, Cranial nerves: grossly normal, Motor: is normal. Vital Signs: 04:31 BP 168 / 140; Pulse 151; Resp 22; Temp 97.8(A); Pulse Ox 100% on 2 lpm NC; Weight 82.55 ao kg (R); Height 5 ft. 5 in. (165.10 cm); Pain 0/10; 04:52 BP 83 / 71; ao 04:54 BP 99 / 35; Pulse 138; Resp 28; Pulse Ox 99% on BiPAP; ao 04:57 BP 117 / 71; Pulse 141; ao 05:00 BP 106 / 74; Pulse 112; ao 05:03 BP 95 / 79; Pulse 103; ao 05:09 BP 118 / 87; Pulse 94; ao 05:19 BP 93 / 69; Pulse 117; Resp 20; Pulse Ox 99% on 30% BiPAP; mt 05:50 BP 113 / 112; Pulse 105; Resp 18; Pulse Ox 100% on BiPAP; ao 06:00 Temp 97.5(A); ao 06:16 BP 131 / 46; Pulse 108; Resp 16; Pulse Ox 98% on R/A; Pain 0/10; ao 07:13 BP 110 / 76 RA Sitting (man/reg); ap3 08:15 BP 110 / 71; Pulse 91; Resp 20; Temp 97.5(A); Pulse Ox 96% on R/A; ae1 04:31 Body Mass Index 30.29 (82.55 kg, 165.10 cm) ao MDM: 04:27 Patient medically screened. pkl 05:27 Data reviewed: vital signs, nurses notes, lab test result(s), EKG, radiologic studies, pkl plain films. 02/22 04:37 Order name: Basic Metabolic Panel pkl 02/22 04:37 Order name: BNP; Complete Time: 05:26 pkl 02/22 04:37 Order name: CBC with Diff; Complete Time: 05:36 pkl 02/22 04:37 Order name: Ckmb pkl 02/22 04:37 Order name: CPK pkl 02/22 04:37 Order name: LFT's; Complete Time: 06:38 pkl 02/22 04:37 Order name: Magnesium; Complete Time: 06:38 pkl 02/22 04:37 Order name: PT-INR; Complete Time: 05:26 pkl 02/22 04:37 Order name: Ptt, Activated; Complete Time: 05:26 pkl 02/22 04:37 Order name: Troponin (emerg Dept Use Only); Complete Time: 05:26 pkl 02/22 04:38 Order name: Basic Metabolic Panel; Complete Time: 06:38 EDMS 02/22 04:38 Order name: CKMB Creatine Kinase MB; Complete Time: 06:38 EDMS 02/22 04:38 Order name: Creatine Phosphokinase; Complete Time: 06:38 EDMS 02/22 05:32 Order name: Manual Differential; Complete Time: 05:36 EDMS 02/22 04:37 Order name: XRAY Chest (1 view); Complete Time: 19:00 pkl 02/22 04:37 Order name: EKG; Complete Time: 04:38 pkl 02/22 04:37 Order name: Cardiac monitoring; Complete Time: 04:38 pkl 02/22 04:37 Order name: EKG - Nurse/Tech; Complete Time: 04:38 pkl 02/22 04:37 Order name: IV Saline Lock; Complete Time: 04:38 pkl 02/22 04:37 Order name: Labs collected and sent; Complete Time: 04:39 pkl 02/22 05:38 Order name: Blood Culture Adult (2) ao 02/22 05:38 Order name: Urine Culture ao 02/22 06:03 Order name: BIPAP em1 02/22 07:56 Order name: Troponin I; Complete Time: 19:00 EDMS 02/22 04:37 Order name: O2 Per Protocol; Complete Time: 04:39 pkl 02/22 04:37 Order name: O2 Sat Monitoring; Complete Time: 04:39 pkl Administered Medications: 04:50 Drug: morphine 2 mg Route: IVP; Site: right antecubital; ao 06:50 Follow up: Response: No adverse reaction ao 04:54 Drug: NS 0.9% 1000 ml Route: IV; Rate: 100 ml/hr; Site: right antecubital; ao 06:51 Follow up: IV Status: Infusion continued upon admission ao 04:58 Drug: Lopressor 5 mg Route: IVP; Site: right antecubital; ao 05:01 Drug: Lopressor 5 mg Route: IVP; Site: right antecubital; ao 05:11 Drug: Lopressor 5 mg Route: IVP; Site: right antecubital; ao 06:50 Follow up: Response: No adverse reaction ao 05:35 Drug: Magnesium Sulfate 2 grams Route: IVPB; Infused Over: 2 hrs; Site: right bs1 antecubital; 06:50 Follow up: IV Status: Completed infusion; IV Intake: 50ml ao 05:39 Drug: Kayexalate 30 grams Route: PO; bs1 06:50 Follow up: Response: No adverse reaction ao 08:11 Drug: Tylenol 500 mg Route: PO; ae1 08:47 Follow up: Response: Other; medication administered upon admission. ae1 Point of Care Testing: Blood Glucose: 07:57 Blood Glucose: 383 mg/dL; ae1 Ranges: Critical Glucose Levels:Adult <50 mg/dl or >400 mg/dl <40 mg/dl or >180 mg/dl Disposition: 02/22/18 05:35 Hospitalization ordered by Rogelio Huang for Inpatient Admission. Preliminary diagnosis is Chest pain. Atrail fibrillation with RVR. Hypomagnesemia. Hyperkalemia. Hyponatremia. - Bed requested for Intensive Care Unit. - Status is Inpatient Admission. ae1 - Condition is Stable. - Problem is new. - Symptoms are unchanged. UTI on Admission? No Signatures: Dispatcher [employer] EDMS Carol Verdugo, RN RN Clyde Quinones MD MD pkl Trinity Galvan RN FRANK Pérez Servin RN RN ao Elliott, Andrea, RN RN ae1 Mery Santiago RN RN bs1
[2018-02-22] MEDS ORDERED: SOD POLYSTYREN SUL 15 GM/60 ML UCUP ONE (05:44)
[2018-02-22] MEDS ORDERED: Magnesium Sulfate 2gm IVPB 2 G/50 ML BAG IV ONE (05:45)
--- NOTE | 2018-02-22 05:49 | P.HP ---
Certification for Inpatient Patient admitted to: Inpatient With expected LOS: >2 Midnights Practitioner: I am a practitioner with admitting privileges, knowledge of patient current condition, hospital course, and medical plan of care. Services: Services provided to patient in accordance with Admission requirements found in Title 42 Section 412.3 of the Code of Federal Regulations Patient History Date of Service: 02/22/18 Reason for admission: A.Fib with RVR History of Present Illness: Ms Ordaz is a 62 years old woman with history of DM II, HTN, COPD, anticoagulated with coumadin due to history of upper extremity DVT at the port-a -cath site, recently diagnosed with Squamous cell carcinoma of the lung, who was admitted last week due to COPD exacerbation. At that time she was referred to be followed up by Oncologist due to progression of her lung cancer. She was discharged on tapering dose of steroids, breathing treatments. Today around 3-4 am, she start feeling a pressure like chest pain, retrosternal, radiated to her back, associated with SOB and nausea. Her pain was about 6/10 of intensity. In ER the patient was found to be on A.Fib at about 130 bpm. Initial BP was 140's/ 80's, however the BP drop during her stay, before receive any medication to slow down HR, to 80's/50's. Since the patient was anticoagulated, in fact, supertherapeutic INR 7.11, she was electric cardioverted with 200 J. It failed to come back to SR, however, the rate of a.fib slow down and her BP improved. Then she was started on IV lopresof. She has received a total or 3 bolus of 5 mg each one. No history of fever or chills. Lab work remarkable for leukocytosis (but she was on steroids at home) hyperkalemia, hyponatremia, hypomagnesemia, and hyperglycemia. INR supertherapeutic as mentioned above. No signs of active bleeding. Allergies No Known Allergies Allergy (Verified 02/05/18 13:05) Home Medications: Albuterol Sulfate [Proair Hfa] 8.5 gm IH DAILYPRN PRN 11/19/17 Alprazolam [Xanax*] 0.5 mg PO TID PRN 11/19/17 Metformin HCl [Glucophage*] 500 mg PO BIDWM 11/19/17 Metoprolol Succinate [Toprol Xl*] 25 mg PO DAILY 11/19/17 Multivitamin [Multivitamins] 1 each PO DAILY 11/19/17 Omeprazole 20 mg PO DAILY 11/19/17 Sertraline HCl 100 mg PO DAILY 11/19/17 Simvastatin 40 mg PO DAILY 11/19/17 Trazodone HCl 100 mg PO BEDTIME 11/19/17 Warfarin Sodium [Coumadin*] 4 mg PO DAILY 5 PM 11/19/17 Tramadol HCl [Ultram] 50 mg PO PRN PRN 02/05/18 Glycopyrrolate/Formoterol Fum [Bevespi Aerosphere Inhaler] 2 puff IH BID Benzonatate [Tessalon Perle] 200 mg PO TID PRN #30 cap 02/16/18 Guaifenesin [Mucinex] 600 mg PO BID PRN #30 tab.er.12h 02/16/18 Magnesium Oxide [Mag 0X Tab] 400 mg PO DAILY #30 tab 02/16/18 Prednisone [Prednisone*] 20 mg PO SEECOM #15 tab 02/16/18 - Past Medical/Surgical History Diabetic: Yes -: Diabetes mellitus type 2 -: Hypertension -: COPD -: Hyperlipidemia -: History of blood clots, chronic anti coagulation -: Tobacco abuse -: 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 She has 3 children. She is - Family History Father -: Hypertension, Diabetes, Kidney disease Notes: rheumatic fever Mother -: Heart disease, Diabetes - Social History Smoking Status: Current every day smoker Counseled patient to stop smoking for: less than 10 minutes Alcohol use: Yes CD- Drugs: Yes Caffeine use: Yes Place of Residence: Home Review of Systems 10-point ROS is otherwise unremarkable Physical Examination - Physical Exam General: Alert, In no apparent distress HEENT: Atraumatic, PERRLA, Mucous membr. moist/pink, EOMI, Sclerae nonicteric Neck: Supple, 2+ carotid pulse no bruit, No LAD, Without JVD or thyroid abnormality Respiratory: Clear to auscultation bilaterally, Diminished Cardiovascular: Regular rate/rhythm, Normal S1 S2, Irregular heart rate/rhythm Gastrointestinal: Normal bowel sounds, No tenderness Musculoskeletal: No tenderness Integumentary: No rashes Neurological: Normal speech, Normal strength at 5/5 x4 extr, Normal tone, Normal affect Lymphatics: No axilla or inguinal lymphadenopathy - Studies Laboratory Data (last 24 hrs) 02/22/18 04:40: PT 85.6 H, INR 7.11 H*, APTT 35.5 02/22/18 04:40: WBC 25.8 H* D, Hgb 12.5, Hct 38.3, Plt Count 756 H D 02/22/18 04:40: B-Natriuretic Peptide 198 H 02/22/18 04:40: Sodium 126 L, Potassium 5.6 H*, BUN 18, Creatinine 1.26 H, Glucose 577 H*, Magnesium 1.2 L*, Total Bilirubin 0.7, AST 35, Alkaline Phosphatase 79 Assessment and Plan - Problems (Diagnosis) (1) Hyperkalemia Current Visit: Yes Status: Acute (2) Warfarin-induced coagulopathy Current Visit: Yes Status: Acute (3) COPD (chronic obstructive pulmonary disease) Onset Date: 02/15/18 Current Visit: No Status: Acute Qualifiers: COPD type: COPD with acute exacerbation Qualified Code(s): J44.1 - Chronic obstructive pulmonary disease with (acute) exacerbation (4) Chest pain Onset Date: 02/15/18 Current Visit: No Status: Acute Qualifiers: Chest pain type: unspecified Qualified Code(s): R07.9 - Chest pain, unspecified (5) Hypomagnesemia Onset Date: 02/15/18 Current Visit: No Status: Acute (6) Diabetes mellitus Onset Date: 02/15/18 Current Visit: No Status: Chronic Qualifiers: Diabetes mellitus type: type 2 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 Will continue PRN IV medication to slow down her HR, I have consulted Cardiology team for evaluation and recommendations. She has a recent ECHO done during last admission which shows normal EF at 67% with small to moderate pericardial effusion. CXR today shows bigger heart silhouette compared to CXR 1 week ago. Will order a new ECHO to evaluate progression of pericardial effusion. For supertherapeutic INR, Will hold Coumadin and check new INR in AM - Advance Directives Does patient have a Living Will: No Does patient have a Durable POA for Healthcare: No - Code Status/Comfort Care Code Status Assessed: Yes Code Status: Full Code
[2018-02-22] MEDS ORDERED: PROMETHAZINE 25 MG/ML VIAL ONE (06:03)
[2018-02-22] MEDS ORDERED: ALBUTEROL 2.5 MG/3 ML NEB SOL NEB PRN (07:06)
[2018-02-22] MEDS ORDERED: ACETAMINOPHEN 500 MG TAB PO PRN (07:06)
[2018-02-22] MEDS ORDERED: ONDANSETRON 4 MG/2 ML VIAL IV PRN (07:06)
[2018-02-22] MEDS ORDERED: IPRATROPIUM BROM 0.5MG/2.5ML NEB PRN (07:06)
[2018-02-22] MEDS: INSULIN -REGULAR HUMAN 50 UNIT/0.5 ML ML SQ SCH ×3 (07:30→16:15)
--- NOTE | 2018-02-22 07:44 | RAD REPORT ---
EXAM DESCRIPTION: RAD - Chest Single View - 02/22/2018 6:50 am CLINICAL HISTORY: Chest pain COMPARISON: CT chest February 14, portable chest February 14 TECHNIQUE: AP portable chest image was obtained 0501 hours . FINDINGS: Cavitary mass with air-fluid level right upper lobe is not clearly different over this ml rt interval. No acute infiltrate or failure finding. CT study showed additional areas of nodularity d ifficult to appreciate on portable examination. Significantly enlarged cardiac silhouette is noted. T his could be secondary to chamber enlargement or enlargement of the pericardial fluid seen on the CT study. Upper lobe vasculature within normal limits. No measurable pleural effusion and no pneumothora x. No gross bony abnormality seen. No acute aortic finding. Vascular stent is seen in the midline ifrah st. Resuscitation paddle overlies the upper right chest. IMPRESSION: Significantly enlarged cardiac silhouette from either chamber enlargement, pericardial i nfusion enlargement or a combination. No vascular engorgement or other findings of acute failure. Cavitary mass in the right upper lobe is stable over the short interval. No new lung parenchymal proc ess seen.
[2018-02-22] MEDS ORDERED: ACETAMINOPHEN 500 MG TAB ONE (08:25)
[2018-02-22] MEDS ORDERED: INSULIN -REGULAR HUMAN 50 UNIT/0.5 ML ML ONE (08:25)
[2018-02-22] MEDS ORDERED: TRAZODONE 50 MG TABLET PO PRN (10:03)
[2018-02-22] MEDS ORDERED: GUAIFENESIN 600 MG SA TAB PO PRN (10:03)
[2018-02-22] MEDS ORDERED: ALPRAZOLAM 0.5 MG TABLET PO PRN (10:03)
[2018-02-22] MEDS ORDERED: predniSONE 20 MG TAB PO SCH (10:30)
[2018-02-22] MEDS ORDERED: INFLUENZA VACCINE (for 3y+) 0.5 ML DOSE IMVAC ONE (11:00)
--- NOTE | 2018-02-22 11:12 | EKG ---
Test Date: 2018-02-22 Test Time: 04:29:01 Senior [employer] Applications Developer: KACEY MEASUREMENT RESULTS: Intervals: Rate: 144 FL: QRSD: 74 QT: 298 QTc: 461 Felda: P: FL: QRS: 20 T: 76 INTERPRETIVE STATEMENTS: Atrial fibrillation with rapid ventricular response Low voltage QRS Septal infarct, age undetermined Abnormal ECG Compared to ECG 02/14/2018 12:41:28 Low QRS voltage now present Sinus rhythm no longer present Sinus arrhythmia no longer present Myocardial infarct finding still present Electronically Signed On 02-22-18 11:11:18 CDT by Yosef Andrade
[2018-02-22] MEDS: TRAMADOL HCL 50 MG TAB PO PRN ×2 (11:23→17:59)
[2018-02-22 12:02] LABS: Potassium 4.3 mEq/L (3.6-5.0)
[2018-02-22] MEDS ORDERED: MORPHINE 2 MG/ML SYR IV PRN (12:29)
--- NOTE | 2018-02-22 12:36 | P.CNS ---
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 Andrade she is now hoarse complaining of cough. Patient was admitted in AFib and was cardioverted patient is on warfarin at home INR elevated at 7.11 Allergies No Known Allergies Allergy (Verified 02/22/18 09:03) Home Medications: Albuterol Sulfate [Proair Hfa] 8.5 gm IH DAILYPRN PRN 11/19/17 Alprazolam [Xanax*] 0.5 mg PO TID PRN 11/19/17 Metformin HCl [Glucophage*] 500 mg PO BIDWM 11/19/17 Metoprolol Succinate [Toprol Xl*] 25 mg PO DAILY 11/19/17 Multivitamin [Multivitamins] 1 each PO DAILY 11/19/17 Omeprazole 20 mg PO DAILY 11/19/17 Sertraline HCl 100 mg PO DAILY 11/19/17 Simvastatin 40 mg PO DAILY 11/19/17 Trazodone HCl 100 mg PO BEDTIME PRN 11/19/17 Warfarin Sodium [Coumadin*] 4 mg PO DAILY 5 PM 11/19/17 Tramadol HCl [Ultram] 50 mg PO PRN PRN 02/05/18 Glycopyrrolate/Formoterol Fum [Bevespi Aerosphere Inhaler] 2 puff IH BID Guaifenesin [Mucinex] 600 mg PO BID PRN #30 tab.er.12h 02/16/18 Prednisone [Prednisone*] 20 mg PO SEECOM #15 tab 02/16/18 - Past Medical/Surgical History Diabetic: Yes -: Diabetes mellitus type 2 -: Hypertension -: COPD -: Hyperlipidemia -: History of blood clots, chronic anti coagulation -: Tobacco abuse -: Squamous cell lung cancer, stage IV -: Goblet cell cancer -: Depression with anxiety -: Multiple biopsies -: Back surgery -: right lymph node removeal -: partial colectomy Psychosocial/ Personal History: The patient lives with her son. She has 3 children. She is - Family History Father Medical History: Hypertension, Diabetes, Kidney disease Notes: rheumatic fever Mother Medical History: Heart disease, Diabetes - Social History Smoking Status: Current every day smoker Alcohol use: Yes CD- Drugs: Yes Caffeine use: Yes Place of Residence: Home Review of Systems General: Weakness Respiratory: Cough, Shortness of Breath Cardiovascular: Chest Pain Gastrointestinal: Vomiting Physical Examination Temp Pulse Resp BP Pulse Ox 97.5 F 85 24 H 120/84 97 02/22/18 08:15 02/22/18 09:00 02/22/18 09:00 02/22/18 09:00 02/22/18 09:00 General: Alert, Moderate distress HEENT: Atraumatic Neck: Supple Respiratory: Clear to auscultation bilaterally, Diminished Cardiovascular: No edema, Regular rate/rhythm Gastrointestinal: Normal bowel sounds, Soft and benign Musculoskeletal: No clubbing, No swelling Laboratory Data (last 24 hrs) 02/22/18 04:40: PT 85.6 H, INR 7.11 H*, APTT 35.5 02/22/18 04:40: WBC 25.8 H* D, Hgb 12.5, Hct 38.3, Plt Count 756 H D 02/22/18 04:40: B-Natriuretic Peptide 198 H 02/22/18 04:40: Sodium 126 L, Potassium 5.6 H*, BUN 18, Creatinine 1.26 H, Glucose 577 H*, Magnesium 1.2 L*, Total Bilirubin 0.7, AST 35, ALT 20, Alkaline Phosphatase 79 - Problems (1) Squamous cell carcinoma of lung, stage IV Current Visit: Yes Status: Acute Plan: Patient is 62 years of age with stage IV lung cancer has pericardial effusion that has progressed including multiple mediastinal lymph nodes axillary nodes. Patient was scheduled to have chemotherapy admitted with the chest pain dysphonia discuss with the patient she was to undergo a pericardial window as per cardiology recommendation following that chemotherapy discussed with her regarding DNR white count elevated mild hyponatremia with elevated creatinine continue with IV fluids pain relief patient's INR is elevated at 7.11 patient did have a Port-A-Cath on the left side associated with DVT of the upper extremity the she was treated for her goblet cell cancer and patient has been on anticoagulation since then vitamin K 5 mg 1 dose given to reverse the effect of Coumadin Qualifiers: Laterality: right Qualified Code(s): C34.91 - Malignant neoplasm of unspecified part of right bronchus or lung
[2018-02-22] MEDS ORDERED: VITAMIN K (ADULT) 10 MG/ML SQ SCH (13:00)
[2018-02-22] MEDS ORDERED: NA CHLORIDE 0.9% 1,000 ML IV SCH (13:00)
[2018-02-22] MEDS: MORPHINE 4 MG/ML SYR IV PRN ×2 (13:37→17:15)
--- NOTE | 2018-02-22 13:42 | ECHO ---
HEIGHT: 5 ft 5 in WEIGHT: 182 lb 1.6 oz DATE OF STUDY: 02/22/[address]: Rogelio Wilson MD 2-DIMENSIONAL: YES M.MODE: YES DOPPLER: YES COLOR FLOW: YES TDS: NO PORTABLE: YES DEFINITY: NO BUBBLE STUDY: NO DIAGNOSIS: CHECK PROGRESSION OF PERICARDIAL EFFUSION. CARDIAC HISTORY: CATHERIZATION: NO SURGERY: NO PROSTHETIC VALVE: NO PACEMAKER: NO MEASUREMENTS (cm) DIASTOLIC (NORMALS) SYSTOLIC (NORMALS) IVSd 1.1 (0.6-1.2) LA Diam 3.6 (1.9-4.0) LVEF 70% LVIDd 3.4 (3.5-5.7) LVIDs 2.1 (2.0-3.5) %FS 38% LVPWd 1.3 (0.6-1.2) Ao Diam 2.7 (2.0-3.7) 2 DIMENSIONAL ASSESSMENT: RIGHT ATRIUM: NORMAL LEFT ATRIUM: NORMAL RIGHT VENTRICLE: NORMAL LEFT VENTRICLE: NORMAL TRICUSPID VALVE: NORMAL MITRAL VALVE: NORMAL PULMONIC VALVE: NORMAL AORTIC VALVE: NORMAL PERICARDIAL EFFUSION: MODERATE TO LARGE AORTIC ROOT: NORMAL LEFT VENTRICULAR WALL MOTION: NORMAL. DOPPLER/COLOR FLOW: MILD TRICUSPID REGURGITATION. MILD PULMONARY HYPERTENSION. COMMENTS: ENLARGING PERICARDIAL EFFUSION. NORMAL LEFT VENTRICULAR EJECTION FRACTION. NO DEFINITE PERICARDIAL TAMPONADE. TECHNOLOGIST: SADIQ SLAAS
--- NOTE | 2018-02-22 14:19 | CON ---
History Of Present Illness: Ms. Ordaz is 62. She was diagnosed as having squamous cell carcinoma of the lung. There is a cavitary mass. It is unresectable. There is evidence of malignant pericardial effusion on echo, not proved with biopsy or fluid sampling. Her diagnosis of lung cancer was made w darcy the last 2 months and she is getting some form of chemotherapy, I do not know any of those deta ils at all. The patient came to our emergency room today because of feeling tight and out of breath and heavy in the chest. She was in atrial fibrillation. She was shock. She is now in sinus rhythm. She does not have a previous history of atrial fibrillation. She is on chronic anticoagulation and her INR was 7.11. Apparently, there was a DVT around the Port-A-Cath site. She had a Port-A-Cath, so she could get chemotherapy. No history of DVT. Before the diagnosis of cancer was made. No hist ory of myocardial infarction, stroke, or stents or bypass surgery. She has COPD, dyslipidemia, hyper tension, and diabetes. Outpatient Medications: Albuterol, trazodone, multivitamin, Xanax, Coumadin, sertraline, simvastatin , metoprolol, omeprazole, metformin, tramadol, formoterol, prednisone, and guaifenesin. Physical Examination: Vital Signs: 5 feet 5 inches, 182 pounds. General: Mild respiratory distress. Awake, alert, oriented. Lungs: Reveal a lot of abnormal breath sounds, mostly large airway crackles, some mild wheezing is a lso noted. Heart: Heart tones are muffled. I do not hear a friction rub. Abdomen: Soft. Extremities: Mild edema. Neck: No jugular vein pressure. It seems like it may be slightly elevated, difficult to tell. Her electrocardiogram when she first arrived showed atrial fibrillation. Presently, she is in sinus rhythm on the monitor. Impression: The patient has a pericardial effusion. There is not much doubt in my mind, that it is a malignant effusion. If it shows any increase in size, I think the patient demonstrated that she ne eds to have a pericardial window that is something that can be done for some reason or the patient do es not wish it, perhaps the patient should be DNR. This is potentially life-threatening. I think if it continues to grow and causes tamponade presently, she is clinically pericardial tamponade but she certainly has a major risk factor for feeling tight and heavy in the chest. I suspect that she will need a window if not real soon, then in the not very distant future. ANNELIESE/SHAKIR Voice ID: [id number] Report ID: [id number]
--- NOTE | 2018-02-22 16:36 | PN ---
Date of Progress Note: 02/22/2018 Subjective: The patient is seen and examined. Chart reviewed and case discussed with RN. The patie nt states that her chest pain is improved, however, still has a hoarse voice. Case discussed with Dr Thelma Andrade and Dr. Baeza as well as Dr. Swartz. The patient recommended to be transferred to [facility] level of care for pericardial window due to pericardial effusion. Review of Systems: Negative except as above. Medications: Reviewed. Physical Examination: Vital Signs: Temperature 97.5, heart rate 91, blood pressure 110/71, respirations 20, O2 96% on 2 L via nasal cannula. General: Awake, alert, oriented x3, in some mild distress, ill-appearing, elderly female, obese, BMI 30. CV: S1, S2. Peripheral pulses present. Respiratory: Moving air well bilaterally. No wheezing. No stridor. No use of accessory muscles. Gastrointestinal: Obese, soft, nontender, nondistended. Positive bowel sounds. No guarding or rigi dity. Extremities: No clubbing, cyanosis, or edema. No calf tenderness. Neuro: Cranial nerves 2-12 intact grossly. No focal neurological deficit. Skin: No rashes. Normal skin turgor. Laboratory Data: Repeat BMP pending. Glucose 316, sodium 126, potassium 5.6, chloride 87, CO2 22, B UN 18, creatinine 1.26, glucose 577, magnesium 1.2, calcium 9.5. Troponin less than 0.03 x2. BNP 19 8. INR 7.11. WBC 25.8, H and H 12.5, 38.3, platelets 756, neutrophils 88%. Assessment And Plan: A 62-year-old female with: 1.Chest pain. Continue chest pain guidelines. Troponin negative x2. May be secondary to pericardi al effusion. Appreciate Dr. Andrade' input. 2.Moderate to severe pericardial effusion. Repeat echocardiogram is currently pending. Cardiology recommends transfer for higher level of care for pericardial window. nursery worker has been informed to initiate the process. 3.Hyperkalemia, treated. We will repeat potassium level. 4.Coumadin coagulopathy. INR 7.11. The patient's warfarin has been held. We will continue to aristides tor INR level. 5.Hypomagnesemia. We will replace and monitor. 6.Chronic obstructive pulmonary disease with acute exacerbation. We will continue breathing treatme nts and steroids. The patient was on steroids at home. 7.Steroid induced leukocytosis. 8.Diabetes mellitus type 2 with hyperglycemia with long-term use of insulin. We will adjust sliding scale repeat blood glucose level. 9.Squamous cell lung cancer recently diagnosed. The patient has not initiated chemotherapy. Does alo Swartz as an outpatient. 10.Essential hypertension. 11.Hyperlipidemia. 12.History of blood clots on Coumadin. 13.Nicotine dependence. 14.History of culprit cell cancer. 15.Depression with anxiety. Plan: We will follow up on echocardiogram for progression of pericardial effusion. Monitor INR and blood glucose levels. Repeat BMP and initiate transfer for higher level of care. The patient needs pericardial window. /SHAKIR Voice ID: [id number] Report ID: [id number]
--- NOTE | 2018-02-22 17:34 | P.SSS ---
Patient History Date of Service: 02/22/18 Reason for admission: A.Fib with RVR History of Present Illness: From H&P Ms Ordaz is a 62 years old woman with history of DM II, HTN, COPD, anticoagulated with coumadin due to history of upper extremity DVT at the port-a -cath site, recently diagnosed with Squamous cell carcinoma of the lung, who was admitted last week due to COPD exacerbation. At that time she was referred to be followed up by Oncologist due to progression of her lung cancer. She was discharged on tapering dose of steroids, breathing treatments. Today around 3-4 am, she start feeling a pressure like chest pain, retrosternal, radiated to her back, associated with SOB and nausea. Her pain was about 6/10 of intensity. In ER the patient was found to be on A.Fib at about 130 bpm. Initial BP was 140's/ 80's, however the BP drop during her stay, before receive any medication to slow down HR, to 80's/50's. Since the patient was anticoagulated, in fact, supertherapeutic INR 7.11, she was electric cardioverted with 200 J. It failed to come back to SR, however, the rate of a.fib slow down and her BP improved. Then she was started on IV lopresof. She has received a total or 3 bolus of 5 mg each one. No history of fever or chills. Lab work remarkable for leukocytosis (but she was on steroids at home) hyperkalemia, hyponatremia, hypomagnesemia, and hyperglycemia. INR supertherapeutic as mentioned above. No signs of active bleeding. Allergies No Known Allergies Allergy (Verified 02/22/18 09:03) Home medications list reviewed: Yes Home Medications: Albuterol Sulfate [Proair Hfa] 8.5 gm IH DAILYPRN PRN 11/19/17 Alprazolam [Xanax*] 0.5 mg PO TID PRN 11/19/17 Metformin HCl [Glucophage*] 500 mg PO BIDWM 11/19/17 Metoprolol Succinate [Toprol Xl*] 25 mg PO DAILY 11/19/17 Multivitamin [Multivitamins] 1 each PO DAILY 11/19/17 Omeprazole 20 mg PO DAILY 11/19/17 Sertraline HCl 100 mg PO DAILY 11/19/17 Simvastatin 40 mg PO DAILY 11/19/17 Trazodone HCl 100 mg PO BEDTIME PRN 11/19/17 Warfarin Sodium [Coumadin*] 4 mg PO DAILY 5 PM 11/19/17 Tramadol HCl [Ultram] 50 mg PO PRN PRN 02/05/18 Glycopyrrolate/Formoterol Fum [Bevespi Aerosphere Inhaler] 2 puff IH BID Guaifenesin [Mucinex] 600 mg PO BID PRN #30 tab.er.12h 02/16/18 Prednisone [Prednisone*] 20 mg PO SEECOM #15 tab 02/16/18 - Past Medical/Surgical History Has patient received pneumonia vaccine in the past: No Diabetic: Yes -: Diabetes mellitus type 2 -: Hypertension -: COPD -: Hyperlipidemia -: History of blood clots, chronic anti coagulation -: Tobacco abuse -: Squamous cell lung cancer, stage IV -: Goblet cell cancer -: Depression with anxiety -: Multiple biopsies -: Back surgery -: right lymph node removeal -: partial colectomy Psychosocial/ Personal History: The patient lives with her son. She has 3 children. She is - Family History Father -: Hypertension, Diabetes, Kidney disease Notes: rheumatic fever Mother -: Heart disease, Diabetes - Social History Smoking Status: Current every day smoker Alcohol use: Yes CD- Drugs: Yes Caffeine use: Yes Place of Residence: Home Review of Systems 10-point ROS is otherwise unremarkable Physical Examination - Vital Signs Temperature: 98.2 F Blood Pressure: 162/100 Pulse: 81 Respirations: 24 Pulse Ox (%): 95 - Physical Exam Other Physical/Emotional Findings: Please see dictated progress note on day of discharge for physical exam findings - Studies Laboratory Data (last 24 hrs) 02/22/18 04:40: PT 85.6 H, INR 7.11 H*, APTT 35.5 02/22/18 04:40: WBC 25.8 H* D, Hgb 12.5, Hct 38.3, Plt Count 756 H D 02/22/18 04:40: B-Natriuretic Peptide 198 H 02/22/18 04:40: Sodium 126 L, Potassium 5.6 H*, BUN 18, Creatinine 1.26 H, Glucose 577 H*, Magnesium 1.2 L*, Total Bilirubin 0.7, AST 35, ALT 20, Alkaline Phosphatase 79 - Diagnosis (Problem(s)) (1) COPD (chronic obstructive pulmonary disease) Onset Date: 02/15/18 Current Visit: Yes Status: Acute Qualifiers: COPD type: COPD with acute exacerbation Qualified Code(s): J44.1 - Chronic obstructive pulmonary disease with (acute) exacerbation (2) Chest pain Onset Date: 02/15/18 Current Visit: Yes Status: Acute Qualifiers: Chest pain type: unspecified Qualified Code(s): R07.9 - Chest pain, unspecified (3) Hyperkalemia Onset Date: 02/22/18 Current Visit: Yes Status: Acute (4) Hypomagnesemia Onset Date: 02/15/18 Current Visit: Yes Status: Acute (5) Squamous cell carcinoma of lung, stage IV Current Visit: Yes Status: Acute Qualifiers: Laterality: right Qualified Code(s): C34.91 - Malignant neoplasm of unspecified part of right bronchus or lung (6) Warfarin-induced coagulopathy Onset Date: 02/22/18 Current Visit: Yes Status: Acute (7) Diabetes mellitus Onset Date: 02/15/18 Current Visit: Yes Status: Chronic Qualifiers: Diabetes mellitus type: type 2 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 Diabetes mellitus complication status: with other specified complication Qualified Code(s): E11.69 - Type 2 diabetes mellitus with other specified complication (8) Chronic anticoagulation Onset Date: 02/15/18 Current Visit: No Status: Chronic (9) Depression with anxiety Onset Date: 02/15/18 Current Visit: No Status: Chronic (10) Hyperlipidemia Onset Date: 02/15/18 Current Visit: No Status: Chronic Qualifiers: Hyperlipidemia type: unspecified Qualified Code(s): E78.5 - Hyperlipidemia , unspecified (11) Hypertension Onset Date: 02/15/18 Current Visit: No Status: Chronic Qualifiers: Hypertension type: essential hypertension Qualified Code(s): I10 - Essential (primary) hypertension Treatment Summary: Patient is a 62-year-old female with complicated past medical history he was admitted to the hospital for chest pain and atrial fibrillation with rapid ventricular rate. Patient was cardioverted however did not convert back to sinus rhythm. Patient also had elevated blood sugar level and hyperkalemia. Patient was treated for her high glucose and high potassium. Repeat levels showed improvement. Patient has history of moderate to severe pericardial effusion on echocardiogram recently. Echocardiogram was repeated and showed worsening pericardial effusion likely related to carcinoma of the lung. Cardiology and pulmonology recommended transfer to higher level of care for pericardial window. Patient's heart rate improved. Spoke with accepting physician at [facility] who accepted the patient. Patient was then transferred to [facility] for higher level of care - Disposition Discharge Date: 02/22/18 Disposition: TRANSFER TO [facility] Patient Discharge Instructions: Transfer to [facility] Diet: AHA Activity: Fall precautions
[2018-02-22] MEDS ORDERED: LABETALOL 20 MG/4ML SYRINGE IV ONE (17:49)
[2018-02-22] MEDS ORDERED: ATORVASTATIN 20 MG TAB PO SCH (21:00)
[2018-02-22] MEDS ORDERED: GLYCOPYRROLATE IH SCH (21:00)
[2018-02-22] MEDS ORDERED: FORMOTEROL FUM IH SCH (21:00)
[2018-02-23] MEDS ORDERED: PANTOPRAZOLE 40MG TABLET PO SCH (06:30)
[2018-02-23] MEDS ORDERED: SERTRALINE HCL 100 MG TAB PO SCH (09:00)
[2018-02-23] MEDS ORDERED: METOPROLOL XL 25 MG TAB PO SCH (09:00)
== END 2018-02-22 18:30 | disposition short-term general hospital (02) | DRG 309 ==
LOC: ER 04:24 → ERHOLD 05:39 → 3RD-ICU 08:23
PROVIDERS: ADMIT Internal Medicine; ATTEND Family Medicine
PROC: 5A09357 Assistance with Respiratory Ventilation, Less than 24 Consecutive Hours, Continuous Positive Airway Pressure (ICD-10-PCS; principal; 2018-02-22)
DX: I48.91 Unspecified atrial fibrillation (principal); C34.91 Malignant neoplasm of unspecified part of right bronchus or lung; I31.3 Pericardial effusion (noninflammatory); J44.1 Chronic obstructive pulmonary disease with (acute) exacerbation; E87.5 Hyperkalemia; E83.42 Hypomagnesemia; E11.65 Type 2 diabetes mellitus with hyperglycemia; I10 Essential (primary) hypertension; E78.5 Hyperlipidemia, unspecified; F41.8 Other specified anxiety disorders; F17.200 Nicotine dependence, unspecified, uncomplicated
CPT/HCPCS: 36415; 51702; 71045; 80048; 80076; 82550; 82553; 82962; 83735; 83880; 84484; 85025; 85610; 85730; 87040; 87086; 87088; 92960; 93005; 93306; 94660; 96361; 96365; 96375; 99285; J2405; J2550; J3430; J3475; J7030; J7512